=== PATIENT | male | born 1940 | race African-American/Black ===

== ENCOUNTER 2020-06-18 19:33 | Inpatient (IN) | payer MEDICARE ==
[~2020-06-18] VITALS: Ht 182.9 cm; Wt 112.3 kg
--- NOTE | 2020-06-18 19:58 | PHYS DOC ---
General Adult EDM: Chief Complaint: HIP PAIN HPI: HPI: Patient is a 80 year old male who presents with by EMS with right lateral hip pain that is sharp shooting down his leg that he started last couple days. Family states that the patient has blood in his stool and patient states that he does not think that he sees any blood in the stool. Patient also states he has left abdominal pain that feels like " gas pains" and they are sharp at times. Patient states at times he has diarrhea. Patient states it comes and goes. He is alert to himself and place. Patient does have pinpoint pupils bilaterally. I am unaware if this is normal for him or not. Family has not yet arrived. Bradford fabio has not been here and we have no past medical history for the patient at this time. We have no patient medicine list at this time. Patient denies nausea, vomiting, constipation, headache, dizziness, vision changes, chest pain, shortness of air, cough, fever, numbness or tingling. Is able to raise his left leg but he can barely raise the right leg due to it causing the sharp shooting pain that goes into his hip. Family and the patient denies any falls per EMS. Patient rating his pain a 9 out of 10. (LIAM GUZMAN [employer]) Review of Systems: Review of Systems: Constitutional: Denies fever or chills. [] Eyes: Denies change in visual acuity. [] HENT: Denies nasal congestion or sore throat. [] Respiratory: Denies cough or shortness of breath. [] Cardiovascular: Denies chest pain or edema. [] GI: Left-sided abdominal pain, denies nausea, vomiting. + bloody stools or +diarrhea. [] : Denies dysuria. [] Musculoskeletal: Denies back pain. Right hip joint shooting pain radiates down the leg. [] Integument: Denies rash. [] Neurologic: Denies headache, focal weakness or sensory changes. [] Endocrine: Denies polyuria or polydipsia. [] Lymphatic: Denies swollen glands. [] Psychiatric: Denies depression or anxiety. [] (LIAM GUZMAN APRN) Heart Score: Risk Factors: Risk Factors: DM, Current or recent (<one month) smoker, HTN, HLP, family history of CAD, obesity. Risk Scores: Score 0 - 3: 2.5% MACE over next 6 weeks - Discharge Home Score 4 - 6: 20.3% MACE over next 6 weeks - Admit for Clinical Observation Score 7 - 10: 72.7% MACE over next 6 weeks - Early Invasive Strategies (LIAM GUZMAN APRN) Physical Exam: PE: Constitutional: Well developed, well nourished, no acute distress, non-toxic appearance. [] HENT: Normocephalic, atraumatic, bilateral external ears normal, oropharynx moist, no oral exudates, nose normal. [] Eyes: Point pupils. PERRLA, EOMI, conjunctiva normal, no discharge. [] Neck: Normal range of motion, no tenderness, supple, no stridor. [] Cardiovascular:Heart rate regular rhythm, no murmur [] Lungs & Thorax: Bilateral upper breath sounds clear and lower diminished to auscultation [] Abdomen: Bowel sounds normal, soft, no tenderness, no masses, no pulsatile masses. [] Skin: Warm, dry, no erythema, no rash. [] Back: No tenderness, no CVA tenderness. [] Extremities: No tenderness, no cyanosis, no clubbing, ROM intact, lower extremity 2+ edema. [] Neurologic: Alert and oriented X 3, normal motor function, normal sensory function, no focal deficits noted. [] Psychologic: Affect normal, judgement normal, mood normal. [] (LIAM GUZMAN APRN) PE: Patient alert but confused cardiac dyskinesia present no respiratory distress (CAROLINE DENTON MD) EKG: EK and read by Dr Denton as sinus rhythm with a T abnormality but no STEMI[] (LIAM GUZMAN APRN) Radiology/Procedures: Radiology/Procedures: [] Impression: [facility] [address] [place], [place] [id number] IMAGING REPORT Signed PATIENT: LALY DAVIS ACCOUNT: [id number] : 1940 LOCATION: ER AGE: 80 SEX: M EXAM STATUS: REG ER ORD. PHYSICIAN: LIAM GUZMAN APRN REASON: elevated temperature, abd pain PROCEDURE: PORTABLE CHEST 1V Exam: Chest one view INDICATION: Elevated temperature TECHNIQUE: Frontal view of the chest Comparisons: None FINDINGS: The cardiomediastinal silhouette and pulmonary vessels are within normal limits. The lung and pleural spaces are clear. IMPRESSION: No acute cardiopulmonary process. Electronically signed by: Geoffrey Cobb MD (06/18/2020 8:25 PM) [id number] DICTATED and SIGNED BY: GEOFFREY COBB MD DATE: 06/18/202024 [place] [address] IMAGING REPORT Signed PATIENT: LALY DAVIS ACCOUNT: [id number] : 1940 LOCATION: ER AGE: 80 SEX: M EXAM STATUS: REG ER ORD. PHYSICIAN: LIAM GUZMAN APRN REASON: pain PROCEDURE: HIP RIGHT 2V WITH PELVIS EXAM: AP pelvis, AP and lateral views right hip DATE: 06/18/2020 12:00 AM INDICATION: Reason: pain / Spl. Instructions: / History: COMPARISON: No Prior FINDINGS: Severe right hip joint osteoarthritis with joint space effacement, subchondral sclerosis and associated proliferative changes. Left hip joint osteoarthritis with joint space narrowing and proliferative change. No evidence of acute fracture or dislocation. Degenerative changes of the spine and SI joints. IMPRESSION: 1. Severe right hip joint osteoarthritis 2. Moderate left hip joint osteoarthritis. 3. No evidence of acute fracture or dislocation. Electronically signed by: Buddy Smith MD (06/18/2020 8:24 PM) [facility] DICTATED and SIGNED BY: BUDDY SMITH MD DATE: 06/18/[address]23 [address] [id number] IMAGING REPORT Signed PATIENT: LALY DAVIS ACCOUNT: [id number] : 1940 LOCATION: ER AGE: 80 SEX: M EXAM STATUS: REG ER ORD. PHYSICIAN: LIAM GUZMAN APRN REASON: abd pain, possible blood in stool PROCEDURE: CT ABDOMEN PELVIS WO CONTRAST Exam: CT abdomen and pelvis without contrast INDICATION: Abdominal pain, possible blood in stool TECHNIQUE: Sequential axial images through the abdomen and pelvis obtained without IV contrast. Sagittal and coronal reformatted images were reconstructed from the axial data and reviewed. Comparisons: None FINDINGS: Heart size is normal. No pericardial effusion. Strandy opacities at the dependent portion lungs likely representing atelectasis. No pleural effusion. Evaluation of solid organs is limited secondary to noncontrast technique. Liver, spleen, pancreas and adrenals are unremarkable. Gallstones are noted in the gallbladder which is contracted. No perinephric inflammation or hydronephrosis. No renal or ureteral calculi are identified. Bladder is distended and appears thin-walled. Prostate is not enlarged. Large and small bowel are unremarkable. Appendix is normal. No free abdominal air or fluid. No obstruction. Abdominal aorta has a normal course and caliber. No enlarged intra-abdominal lymph nodes are identified. No suspicious osseous lesions or acute fractures. IMPRESSION: No acute process identified within the abdomen or pelvis. Exposure: One or more of the following in the visualized dose reduction techniques were utilized for this examination: 1. Automated exposure control 2. Adjustment of the MA and/or KV according to patient size 3. Use of iterative of reconstructive technique Electronically signed by: Geoffrey Cobb MD (06/18/2020 9:55 PM) [id number] DICTATED and SIGNED BY: GEOFFREY COBB MD DATE: 06/18/202154 (LIAM GUZMAN APRN) Course & Med Decision Making: Course & Med Decision Making Pertinent Labs and Imaging studies reviewed. (See chart for details) Abdomen is soft and nontender. See HPI. Skin pink warm and dry. Patient has bilateral lower extremity 2+ edema. Lungs are clear in upper lobes and diminished in lower lobes. Patient does follow you around in the room with his eyes. He answers my questions promptly and appropriately. I will get more information when the patient family arrives. His temp is 99 8 in the ED. nurse states that the patient's has arrived to the hospital and had a medication list. The nurse stated to the that she was anemic a copy of the medication list. States when she went back in the room the had already left. All that we have down is hydrocodone, iron, MiraLAX, aspirin, amlodipine, Namenda. Patient does have a history of dementia. Fecal occult stool was negative. Your states that she has tried to call the multiple times and she is not answering. It is unknown if patient has any allergy list since the patient left before more questions or a medicine list could be copied. Patient has a low potassium of 2.8. Patient will be given potassium by mouth. It is unknown if patient is allergic to iodine contrast. Therefore the CT is done without contrast. Patient is refusing a urine cath for a specimen. Patient is incontinent. Chest x-ray shows no acute findings. Abdomen pelvis CT shows no acute findings. Patient is admitted to Dr Hill for inability to ambulate and Hypokalemia. (LIAM GUZMAN APRN) Course & Med Decision Making I have personally interviewed and examined patient. All charts, labs and imaging studies were reviewed. I agreed with the PA/METROLOGY TECHNICIAN's findings, exam and plan of care (CAROLINE DENTON MD) Dragon Disclaimer: Dragon Disclaimer: This electronic medical record was generated, in whole or in part, using a voice recognition dictation system. (LIAM GUZMAN APRN) Departure Departure Impression: Primary Impression: Unable to ambulate Additional Impression: Hypokalemia Disposition: ADMITTED INPATIENT Admitting Physician: TRAVIS (LIAM GUZMAN APRN) Condition: STABLE Referrals: DERECK DALEY MD (PCP) Justicifation of Admission Dx: Justifications for Admission: Justification of Admission Dx: Yes Comments: Hypokalemia, unable to ambulate (LIAM GUMZAN APRN) Justification of Admission Dx: Yes (CAROLINE DENTON MD) LIAM GUZMAN APRN Jun 18, 2020 19:57 CAROLINE DENTON MD Jun 18, 2020 22:25
[2020-06-18 20:27] LABS: BASO # 0.1 x10^3/uL (0.0-0.2); BASO % 2 % (0-3); EOS # 0.1 x10^3/uL (0.0-0.7); EOS % 2 % (0-3); HEMATOCRIT 29.5 % (39.0-53.0); HEMOGLOBIN 9.8 g/dL (13.0-17.5); LYMPH # 1.6 x10^3/uL (1.0-4.8); LYMPH % 26 % (24-48); MEAN CORPUSCULAR HEMOGLOBIN 26 pg (25-35); MEAN CORPUSCULAR HGB CONC 33 g/dL (31-37); MEAN CORPUSCULAR VOLUME 78 fL (79-100); MONO # 0.6 x10^3/uL (0.0-1.1); MONO % 9 % (0-9); NEUT # 3.8 x10^3/uL (1.8-7.7); NEUT % 61 % (31-73); PLATELET COUNT 300 x10^3/uL (140-400); RED BLOOD COUNT 3.79 x10^6/uL (4.30-5.70); RED CELL DISTRIBUTION WIDTH 27.5 % (11.5-14.5); WHITE BLOOD COUNT 6.1 x10^3/uL (4.0-11.0)
--- NOTE | 2020-06-18 20:27 | RAD ---
EXAM: AP pelvis, AP and lateral views right hip DATE: 06/18/2020 12:00 AM INDICATION: Reason: pain / Spl. Instructions: / History: COMPARISON: No Prior FINDINGS: Severe right hip joint osteoarthritis with joint space effacement, subchondral sclerosis and associated proliferative changes. Left hip joint osteoarthritis with joint space narrowing and proliferative change. No evidence of acute fracture or dislocation. Degenerative changes of the spine and SI joints. IMPRESSION: 1. Severe right hip joint osteoarthritis 2. Moderate left hip joint osteoarthritis. 3. No evidence of acute fracture or dislocation. Electronically signed by: Buddy Edmondson MD (06/18/2020 8:24 PM) RED
--- NOTE | 2020-06-18 20:28 | RAD ---
Exam: Chest one view INDICATION: Elevated temperature TECHNIQUE: Frontal view of the chest Comparisons: None FINDINGS: The cardiomediastinal silhouette and pulmonary vessels are within normal limits. The lung and pleural spaces are clear. IMPRESSION: No acute cardiopulmonary process. Electronically signed by: Geoffrey Braswell MD (06/18/2020 8:25 PM) [id number]
[2020-06-18 20:33] LABS: FECAL OB PT NEGATIVE (NEG)
[2020-06-18 20:37] LABS: PROTHROMBIN TIME PATIENT 13.5 SEC (11.7-14.0)
[2020-06-18 21:09] LABS: ALBUMIN 2.9 g/dL (3.4-5.0); ALBUMIN/GLOBULIN RATIO 0.8 (1.0-1.7); CALCIUM 8.6 mg/dL (8.5-10.1); CREATININE 1.3 mg/dL (0.7-1.3); GFR 64.3; TOTAL BILIRUBIN 0.4 mg/dL (0.2-1.0); TOTAL PROTEIN 6.7 g/dL (6.4-8.2)
[2020-06-18 21:17] LABS: % BASOS 4 % (0-3); % EOS 1 % (0-5); % LYMPHS 26 % (24-48); % MONOS 11 % (0-10); % SEGS 58 % (35-66); POTASSIUM 2.8 mmol/L (3.5-5.1)
[2020-06-18 21:23] LABS: ANISOCYTOSIS MARKED; PLT ESTIMATE ADEQUATE (ADEQUATE); POIKILOCYTOSIS SLIGHT
[2020-06-18 21:24] LABS: MICROCYTOSIS MOD; OVALOCYTES FEW; SCHISTOCYTES OCC; TARGET CELLS MOD
[2020-06-18 21:25] LABS: TEAR DROP CELLS OCC
[2020-06-18] MEDS ORDERED: CONTRAST GIVEN. MC PRN (21:30)
[2020-06-18] MEDS ORDERED: ONDANSETRON PF 4 MG/2 ML VIAL. IVP ONE (21:30)
[2020-06-18] MEDS ORDERED: POTASSIUM CHLORIDE 20 MEQ TABLET.ER. PO ONE (21:30)
[2020-06-18] MEDS ORDERED: IOHEXOL 300 MG/ML 100ML VIAL. IV ONE (21:45)
--- NOTE | 2020-06-18 21:58 | RAD ---
Exam: CT abdomen and pelvis without contrast INDICATION: Abdominal pain, possible blood in stool TECHNIQUE: Sequential axial images through the abdomen and pelvis obtained without IV contrast. Sagittal and coronal reformatted images were reconstructed from the axial data and reviewed. Comparisons: None FINDINGS: Heart size is normal. No pericardial effusion. Strandy opacities at the dependent portion lungs likely representing atelectasis. No pleural effusion. Evaluation of solid organs is limited secondary to noncontrast technique. Liver, spleen, pancreas and adrenals are unremarkable. Gallstones are noted in the gallbladder which is contracted. No perinephric inflammation or hydronephrosis. No renal or ureteral calculi are identified. Bladder is distended and appears thin-walled. Prostate is not enlarged. Large and small bowel are unremarkable. Appendix is normal. No free abdominal air or fluid. No obstruction. Abdominal aorta has a normal course and caliber. No enlarged intra-abdominal lymph nodes are identified. No suspicious osseous lesions or acute fractures. IMPRESSION: No acute process identified within the abdomen or pelvis. Exposure: One or more of the following in the visualized dose reduction techniques were utilized for this examination: 1. Automated exposure control 2. Adjustment of the MA and/or KV according to patient size 3. Use of iterative of reconstructive technique Electronically signed by: Geoffrey Braswell MD (06/18/2020 9:55 PM) [id number]
--- NOTE | 2020-06-18 22:00 | RAD ---
Exam: CT head INDICATION: Left eye vision problems TECHNIQUE: Sequential axial images through the head were obtained without the administration of IV contrast. Comparisons: None FINDINGS: No focal parenchymal lesion or hemorrhage is identified. There is no midline shift or sulcal effacement. Generalized atrophy noted. There is mild hypodensity in the periventricular white matter. Velasquez-white distinction is preserved. The ventricular system is within normal limits without compression hydrocephalus. The basal cisterns are well maintained. The visualized portions of the paranasal sinuses and mastoid air cells are well-pneumatized. No acute fractures. IMPRESSION: Small vessel ischemic change, technically age indeterminate without prior imaging. Exposure: One or more of the following in the visualized dose reduction techniques were utilized for this examination: 1. Automated exposure control 2. Adjustment of the MA and/or KV according to patient size Use of iterative of reconstructive technique Electronically signed by: Geoffrey Braswell MD (06/18/2020 9:57 PM) [id number]
[2020-06-18] MEDS ORDERED: ONDANSETRON PF 4 MG/2 ML VIAL. IV PRN (22:30)
--- NOTE | 2020-06-18 23:45 | NUR ---
Admit from ED to [facility] room 262 via [facility]. Patient transferred self from [facility] to bed with difficulty r/t right hip pain. Patient is alert and can tell me his name and date but can not tell me his medical history, home medication or what pharmacy he uses. When asked who his contact lens assistant is he replies his sister but he can't tell me his sister's name. He reports he left his cell phone at home. Orientated to room and call light. Reviewed POC to include tele monitoring and not to get out of bed without assist. Resting in bed with call light at hand. Bed alarm on.
[2020-06-18 23:50] VITALS: BP 139/63
[2020-06-19 03:35] VITALS: BP 124/55
--- NOTE | 2020-06-19 04:36 | EKG ---
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
[2020-06-19 05:00] LABS: BILIRUBIN,URINE NEGATIVE (NEG); CLARITY,URINE CLEAR; COLOR,URINE YELLOW; NITRITE,URINE NEGATIVE (NEG); PH,URINE 5.5 (<5.0-8.0); PROTEIN,URINE NEGATIVE (NEG-TRACE); UROBILINOGEN,URINE 0.2 mg/dL (0.2 mg/dL)
[2020-06-19 05:07] LABS: BARBITURATES NEG (NEG); BENZODIAZEPINES NEG (NEG); CANNABINOIDS NEG (NEG); COCAINE NEG (NEG); METHADONE NEG (NEG); OPIATES POS (NEG); PHENCYCLIDINE NEG (NEG)
[2020-06-19 05:09] LABS: SQUAMOUS EPITHELIAL CELL,UR FEW /LPF
[2020-06-19 05:10] LABS: BACTERIA,URINE 0 /HPF (0-FEW); RBC,URINE 0 /HPF (0-2); WBC,URINE OCC /HPF (0-4)
[2020-06-19 05:12] LABS: AMPHETAMINE/METHAMPHETAMINE NEG (NEG)
[2020-06-19 07:00] VITALS: BP 112/55
[2020-06-19] MEDS ORDERED: LISI-334 PO (08:25)
[2020-06-19] MEDS ORDERED: DOXA4TAB3 PO (08:25)
[2020-06-19] MEDS ORDERED: FERR325T14 PO (08:25)
[2020-06-19] MEDS ORDERED: LOVA20TA2 PO (08:25)
[2020-06-19] MEDS ORDERED: LATA2.5D3 EACHEYE (08:25)
[2020-06-19] MEDS ORDERED: AMLO10TA8 PO (08:25)
[2020-06-19] MEDS ORDERED: HYDR-3164 PO (08:25)
[2020-06-19] MEDS ORDERED: BRIM5DRO4 EACHEYE (08:25)
[2020-06-19] MEDS ORDERED: MAGNESIUM SULFATE 2GM 50 ML IV ONE (08:30)
[2020-06-19] MEDS ORDERED: POTASSIUM CHLORIDE 20 MEQ TABLET.ER. PO ONE (08:30)
[2020-06-19 09:27] LABS: CALCIUM 8.9 mg/dL (8.5-10.1); CREATININE 1.1 mg/dL (0.7-1.3); GFR 77.9
[2020-06-19 09:31] LABS: HEMOGLOBIN 10.3 g/dL (13.0-17.5); RED BLOOD COUNT 4.06 x10^6/uL (4.30-5.70); RED CELL DISTRIBUTION WIDTH 27.6 % (11.5-14.5); WHITE BLOOD COUNT 5.5 x10^3/uL (4.0-11.0)
--- NOTE | 2020-06-19 10:35 | NUR ---
SW following. Discussed with RN, pt from home with ex-, room air, cardiac diet, pt a&o x2-3, PT/OT ordered. SW will continue to follow.
[2020-06-19 11:07] VITALS: BP 136/67
--- NOTE | 2020-06-19 11:44 | PDOC2 ---
CONSULT Date of Consult Date of Consult DATE: 06/19/20 TIME: 11:43 Identification/Chief Complaint Chief Complaint Right hip pain, right hip arthritis Source Source: Chart review, Patient History of Present Illness Reason for Visit: Mr. Davis, is an 80 year old male admit by EMS with right lateral hip pain that is sharp shooting down his leg that he started last couple days. No recent falls. He says he had a cortisone injection in the past for left hip arthritis and it did not work very well. We talked about the risks and benefits of proceeding with a right hip cortisone injection. He said he is willing to do t hat as long as it will not hurt. I explained that there could be some pain with injection but it might also help his pain and walking. Current Problem List Problem List Problems Medical Problems: (1) Hypokalemia Status: Acute (2) Unable to ambulate Status: Acute Current Medications Current Medications Current Medications Potassium Chloride (Klor-Con) 40 meq 1X ONCE PO Last administered on 06/18/20at 21:51; Start 06/18/20 at 21:30; Stop 06/18/20 at 21:31; Status DC Iohexol (Omnipaque 300 Mg/ml) 75 ml 1X ONCE IV ; Start 06/18/20 at 21:45; Stop 06/18/20 at 21:46; Status DC Ondansetron HCl (Zofran) 4 mg 1X ONCE IVP Last administered on 06/18/20at 21:51; Start 06/18/20 at 21:30; Stop 06/18/20 at 21:31; Status DC Info (CONTRAST GIVEN -- Rx MONITORING) 1 each PRN DAILY PRN MC SEE COMMENTS; Start 06/18/20 at 21:30; Stop 06/20/20 at 21:29 Ondansetron HCl (Zofran) 4 mg PRN Q8HRS PRN IV NAUSEA/VOMITING; Start 06/18/20 at 22:30; Stop 06/19/20 at 22:29 Potassium Chloride (Klor-Con) 40 meq 1X ONCE PO Last administered on 06/19/20at 08:50; Start 06/19/20 at 08:30; Stop 06/19/20 at 08:31; Status DC Magnesium Sulfate 50 ml @ 25 mls/hr 1X ONCE IV Last administered on 06/19/20at 08:52; Start 06/19/20 at 08:30; Stop 06/19/20 at 10:29; Status DC Active Scripts Active Reported Latanoprost 2.5 Ml Drops 1 Drop EACHEYE QHS Brimonidine Tartrate 5 Ml Drops 1 Drop EACHEYE BID Eagle 5-325 Tablet (Acetaminophen/Hydrocodone Bitart) 1 Each Tablet 1 Tab PO Q4- 6HRS Lovastatin 20 Mg Tablet 20 Mg PO HS Ferrous Sulfate 325 Mg Tablet 325 Mg PO QODAY Doxazosin Mesylate 4 Mg Tablet 1 Tab PO DAILY Lisinopril 20 Mg Tablet 20 Mg PO DAILY Amlodipine Besylate 10 Mg Tablet 10 Mg PO DAILY Allergies Allergies: Coded Allergies: No Known Drug Allergies (Unverified , 06/19/20) ROS Review of System Patient denies nausea, vomiting, constipation, headache, dizziness, vision changes, chest pain, shortness of air, cough, fever, numbness or tingling. Physical Exam General: Alert, Cooperative HEENT: Atraumatic Lungs: Normal air movement Heart: Regular rate Abdomen: Soft Extremities: Other (The skin over the right hip is intact. The gross alignment is normal. There is decreased internal and external rotation of the hip, and pain with range of motion. Light touch sensation seems intact distally. Capillary refill is normal. He cannot lift the right leg from the bed, due to the groin and hip pain. I believe this is hip osteoarthritis.) Skin: No significant lesion Neuro: Normal speech (Normal speech within some limits. He speaks quietly, uses very few words, and is difficult to understand.), Sensation intact Psych/Mental Status: Mood NL Vitals VITALS Vital Signs Date Time Temp Pulse Resp B/P (MAP) Pulse Ox O2 Delivery O2 Flow Rate FiO2 06/19/20 11:07 98.6 96 20 136/67 (90) 96 Room Air 98.6 Labs Labs Laboratory Tests Test 06/18/20 19:45 06/18/20 20:17 06/19/20 04:30 06/19/20 09:10 Stool Occult Blood Negative (NEG) White Blood Count 6.1 x10^3/uL (4.0-11.0) 5.5 x10^3/uL (4.0-11.0) Red Blood Count 3.79 x10^6/uL (4.30-5.70) 4.06 x10^6/uL (4.30-5.70) Hemoglobin 9.8 g/dL (13.0-17.5) 10.3 g/dL (13.0-17.5) Hematocrit 29.5 % (39.0-53.0) 32.0 % (39.0-53.0) Mean Corpuscular Volume 78 fL (79-100) 79 fL (79-100) Mean Corpuscular Hemoglobin 26 pg (25-35) 25 pg (25-35) Mean Corpuscular Hemoglobin Concent 33 g/dL (31-37) 32 g/dL (31-37) Red Cell Distribution Width 27.5 % (11.5-14.5) 27.6 % (11.5-14.5) Platelet Count 300 x10^3/uL (140-400) 278 x10^3/uL (140-400) Neutrophils (%) (Auto) 61 % (31-73) Lymphocytes (%) (Auto) 26 % (24-48) Monocytes (%) (Auto) 9 % (0-9) Eosinophils (%) (Auto) 2 % (0-3) Basophils (%) (Auto) 2 % (0-3) Neutrophils # (Auto) 3.8 x10^3/uL (1.8-7.7) Lymphocytes # (Auto) 1.6 x10^3/uL (1.0-4.8) Monocytes # (Auto) 0.6 x10^3/uL (0.0-1.1) Eosinophils # (Auto) 0.1 x10^3/uL (0.0-0.7) Basophils # (Auto) 0.1 x10^3/uL (0.0-0.2) Segmented Neutrophils % 58 % (35-66) Lymphocytes % 26 % (24-48) Monocytes % 11 % (0-10) Eosinophils % 1 % (0-5) Basophils % 4 % (0-3) Platelet Estimate Adequate (ADEQUATE) Poikilocytosis Slight Anisocytosis Marked Microcytosis Mod Target Cells Mod Tear Drop Cells Occ Ovalocytes Few Schistocytes Occ Prothrombin Time 13.5 SEC (11.7-14.0) Prothromb Time International Ratio 1.1 (0.8-1.1) Sodium Level 140 mmol/L (136-145) 145 mmol/L (136-145) Potassium Level 2.8 mmol/L (3.5-5.1) 3.0 mmol/L (3.5-5.1) Chloride Level 105 mmol/L (98-107) 108 mmol/L (98-107) Carbon Dioxide Level 25 mmol/L (21-32) 27 mmol/L (21-32) Anion Gap 10 (6-14) 10 (6-14) Blood Urea Nitrogen 6 mg/dL (8-26) 5 mg/dL (8-26) Creatinine 1.3 mg/dL (0.7-1.3) 1.1 mg/dL (0.7-1.3) Estimated GFR (Cockcroft-Gault) 64.3 77.9 BUN/Creatinine Ratio 5 (6-20) Glucose Level 112 mg/dL (70-99) 102 mg/dL (70-99) Calcium Level 8.6 mg/dL (8.5-10.1) 8.9 mg/dL (8.5-10.1) Magnesium Level 1.8 mg/dL (1.8-2.4) Total Bilirubin 0.4 mg/dL (0.2-1.0) Aspartate Amino Transf (AST/SGOT) 14 U/L (15-37) Alanine Aminotransferase (ALT/SGPT) 16 U/L (16-63) Alkaline Phosphatase 73 U/L (46-116) Troponin I Quantitative < 0.017 ng/mL (0.000-0.055) MI-Zwr-[id number]-Type Natriuretic Peptide 68 pg/mL (0-449) Total Protein 6.7 g/dL (6.4-8.2) Albumin 2.9 g/dL (3.4-5.0) Albumin/Globulin Ratio 0.8 (1.0-1.7) Lipase 54 U/L (73-393) Urine Collection Type Unknown Urine Color Yellow Urine Clarity Clear Urine pH 5.5 (<5.0-8.0) Urine Specific [place] <=1.005 (1.000-1.030) Urine Protein Negative mg/dL (NEG-TRACE) Urine Glucose (UA) Negative mg/dL (NEG) Urine Ketones (Stick) Negative mg/dL (NEG) Urine Blood Negative (NEG) Urine Nitrite Negative (NEG) Urine Bilirubin Negative (NEG) Urine Urobilinogen Dipstick 0.2 mg/dL (0.2 mg/dL) Urine Leukocyte Esterase Negative (NEG) Urine RBC 0 /HPF (0-2) Urine WBC Occ /HPF (0-4) Urine Squamous Epithelial Cells Few /LPF Urine Bacteria 0 /HPF (0-FEW) Urine Mucus Slight /LPF Urine Opiates Screen Pos (NEG) Urine Methadone Screen Neg (NEG) Urine Barbiturates Neg (NEG) Urine Phencyclidine Screen Neg (NEG) Urine Amphetamine/Methamphetamine Neg (NEG) Urine Benzodiazepines Screen Neg (NEG) Urine Cocaine Screen Neg (NEG) Urine Cannabinoids Screen Neg (NEG) Urine Ethyl Alcohol Neg (NEG) Laboratory Tests Test 06/18/20 19:45 06/18/20 20:17 06/19/20 04:30 06/19/20 09:10 Stool Occult Blood Negative (NEG) White Blood Count 6.1 x10^3/uL (4.0-11.0) 5.5 x10^3/uL (4.0-11.0) Red Blood Count 3.79 x10^6/uL (4.30-5.70) 4.06 x10^6/uL (4.30-5.70) Hemoglobin 9.8 g/dL (13.0-17.5) 10.3 g/dL (13.0-17.5) Hematocrit 29.5 % (39.0-53.0) 32.0 % (39.0-53.0) Mean Corpuscular Volume 78 fL (79-100) 79 fL (79-100) Mean Corpuscular Hemoglobin 26 pg (25-35) 25 pg (25-35) Mean Corpuscular Hemoglobin Concent 33 g/dL (31-37) 32 g/dL (31-37) Red Cell Distribution Width 27.5 % (11.5-14.5) 27.6 % (11.5-14.5) Platelet Count 300 x10^3/uL (140-400) 278 x10^3/uL (140-400) Neutrophils (%) (Auto) 61 % (31-73) Lymphocytes (%) (Auto) 26 % (24-48) Monocytes (%) (Auto) 9 % (0-9) Eosinophils (%) (Auto) 2 % (0-3) Basophils (%) (Auto) 2 % (0-3) Neutrophils # (Auto) 3.8 x10^3/uL (1.8-7.7) Lymphocytes # (Auto) 1.6 x10^3/uL (1.0-4.8) Monocytes # (Auto) 0.6 x10^3/uL (0.0-1.1) Eosinophils # (Auto) 0.1 x10^3/uL (0.0-0.7) Basophils # (Auto) 0.1 x10^3/uL (0.0-0.2) Segmented Neutrophils % 58 % (35-66) Lymphocytes % 26 % (24-48) Monocytes % 11 % (0-10) Eosinophils % 1 % (0-5) Basophils % 4 % (0-3) Platelet Estimate Adequate (ADEQUATE) Poikilocytosis Slight Anisocytosis Marked Microcytosis Mod Target Cells Mod Tear Drop Cells Occ Ovalocytes Few Schistocytes Occ Prothrombin Time 13.5 SEC (11.7-14.0) Prothromb Time International Ratio 1.1 (0.8-1.1) Sodium Level 140 mmol/L (136-145) 145 mmol/L (136-145) Potassium Level 2.8 mmol/L (3.5-5.1) 3.0 mmol/L (3.5-5.1) Chloride Level 105 mmol/L (98-107) 108 mmol/L (98-107) Carbon Dioxide Level 25 mmol/L (21-32) 27 mmol/L (21-32) Anion Gap 10 (6-14) 10 (6-14) Blood Urea Nitrogen 6 mg/dL (8-26) 5 mg/dL (8-26) Creatinine 1.3 mg/dL (0.7-1.3) 1.1 mg/dL (0.7-1.3) Estimated GFR (Cockcroft-Gault) 64.3 77.9 BUN/Creatinine Ratio 5 (6-20) Glucose Level 112 mg/dL (70-99) 102 mg/dL (70-99) Calcium Level 8.6 mg/dL (8.5-10.1) 8.9 mg/dL (8.5-10.1) Magnesium Level 1.8 mg/dL (1.8-2.4) Total Bilirubin 0.4 mg/dL (0.2-1.0) Aspartate Amino Transf (AST/SGOT) 14 U/L (15-37) Alanine Aminotransferase (ALT/SGPT) 16 U/L (16-63) Alkaline Phosphatase 73 U/L (46-116) Troponin I Quantitative < 0.017 ng/mL (0.000-0.055) OY-Hoa-D-Type Natriuretic Peptide 68 pg/mL (0-449) Total Protein 6.7 g/dL (6.4-8.2) Albumin 2.9 g/dL (3.4-5.0) Albumin/Globulin Ratio 0.8 (1.0-1.7) Lipase 54 U/L (73-393) Urine Collection Type Unknown Urine Color Yellow Urine Clarity Clear Urine pH 5.5 (<5.0-8.0) Urine Specific [place] <=1.005 (1.000-1.030) Urine Protein Negative mg/dL (NEG-TRACE) Urine Glucose (UA) Negative mg/dL (NEG) Urine Ketones (Stick) Negative mg/dL (NEG) Urine Blood Negative (NEG) Urine Nitrite Negative (NEG) Urine Bilirubin Negative (NEG) Urine Urobilinogen Dipstick 0.2 mg/dL (0.2 mg/dL) Urine Leukocyte Esterase Negative (NEG) Urine RBC 0 /HPF (0-2) Urine WBC Occ /HPF (0-4) Urine Squamous Epithelial Cells Few /LPF Urine Bacteria 0 /HPF (0-FEW) Urine Mucus Slight /LPF Urine Opiates Screen Pos (NEG) Urine Methadone Screen Neg (NEG) Urine Barbiturates Neg (NEG) Urine Phencyclidine Screen Neg (NEG) Urine Amphetamine/Methamphetamine Neg (NEG) Urine Benzodiazepines Screen Neg (NEG) Urine Cocaine Screen Neg (NEG) Urine Cannabinoids Screen Neg (NEG) Urine Ethyl Alcohol Neg (NEG) Images Images [facility] [address] [place] [address] IMAGING REPORT Signed PATIENT: LALY DAVIS ACCOUNT: [id number] : 1940 LOCATION: ER AGE: 80 SEX: M EXAM STATUS: REG ER ORD. PHYSICIAN: LIAM GUZMAN APRN REASON: pain PROCEDURE: HIP RIGHT 2V WITH PELVIS EXAM: AP pelvis, AP and lateral views right hip DATE: 06/18/2020 12:00 AM INDICATION: Reason: pain / Spl. Instructions: / History: COMPARISON: No Prior FINDINGS: Severe right hip joint osteoarthritis with joint space effacement, subchondral sclerosis and associated proliferative changes. Left hip joint osteoarthritis with joint space narrowing and proliferative change. No evidence of acute fracture or dislocation. Degenerative changes of the spine and SI joints. IMPRESSION: 1. Severe right hip joint osteoarthritis 2. Moderate left hip joint osteoarthritis. 3. No evidence of acute fracture or dislocation. Electronically signed by: Buddy Smith MD (06/18/2020 8:24 PM) [facility] DICTATED and SIGNED BY: BUDDY SMITH MD DATE: 06/18/202023 [facility] [address] [place] [address] IMAGING REPORT Signed PATIENT: LALY DAVIS ACCOUNT: [id number] : 1940 LOCATION: ER AGE: 80 SEX: M EXAM STATUS: REG ER ORD. PHYSICIAN: LIAM GUZMAN APRN REASON: abd pain, possible blood in stool PROCEDURE: CT ABDOMEN PELVIS WO CONTRAST Exam: CT abdomen and pelvis without contrast INDICATION: Abdominal pain, possible blood in stool TECHNIQUE: Sequential axial images through the abdomen and pelvis obtained without IV contrast. Sagittal and coronal reformatted images were reconstructed from the axial data and reviewed. Comparisons: None FINDINGS: Heart size is normal. No pericardial effusion. Strandy opacities at the dependent portion lungs likely representing atelectasis. No pleural effusion. Evaluation of solid organs is limited secondary to noncontrast technique. Liver, spleen, pancreas and adrenals are unremarkable. Gallstones are noted in the gallbladder which is contracted. No perinephric inflammation or hydronephrosis. No renal or ureteral calculi are identified. Bladder is distended and appears thin-walled. Prostate is not enlarged. Large and small bowel are unremarkable. Appendix is normal. No free abdominal air or fluid. No obstruction. Abdominal aorta has a normal course and caliber. No enlarged intra-abdominal lymph nodes are identified. No suspicious osseous lesions or acute fractures. IMPRESSION: No acute process identified within the abdomen or pelvis. Exposure: One or more of the following in the visualized dose reduction techniques were utilized for this examination: 1. Automated exposure control 2. Adjustment of the MA and/or KV according to patient size 3. Use of iterative of reconstructive technique Electronically signed by: Geoffrey Cobb MD (06/18/2020 9:55 PM) [id number] DICTATED and SIGNED BY: GEOFFREY COBB MD DATE: 06/18/202154 Assessment/Plan Assessment/Plan right hip osteoarthritis He is a poor historian, and does not appear very compliant with medical care or understanding the care. He has some dementia by report. He is not a good candidate for hip replacement surgery for multiple reasons. I offered him a cortisone injection into the right hip joint which might offer some relief. He came to the hospital with right hip pain so I think it is reasonable to attempt an injection. I will order hip cortisone injection under interventional radiography. He may weight-bear as tolerated with a walker. DIANA RIDDLE MD Jun 19, 2020 11:44
--- NOTE | 2020-06-19 12:18 | PDOC1 ---
History and Physical Date of Admission Date of Admission DATE: 06/19/20 TIME: 08:30 Identification/Chief Complaint Chief Complaint leg pain, cant walk Source Source: Caregiver, Chart review History of Present Illness History of Present Illness Mr. Rose, is a 80 year old male admit by EMS with right lateral hip pain that is sharp shooting down his leg that he started last couple days. leg pain 06/17, no falls Family states that the patient has blood in his stool and patient states that he does not think that he sees any blood in the stool. Patient also states he has left abdominal pain that feels like " gas pains" and they are sharp at times. Patient states at times he has diarrhea. Patient states it comes and goes. He is alert to himself and place. Patient does have pinpoint pupils bilaterally. I am unaware if this is normal for him or not. Family has not yet arrived. Patient has not been here and we have no past medical history for the patient at this time. We have no patient medicine list at this time. Family History Family History: No Significant Social History Smoke: No ALCOHOL: none Drugs: None Current Problem List Problem List Problems Medical Problems: (1) Hypokalemia Status: Acute (2) Unable to ambulate Status: Acute Current Medications Current Medications Current Medications Potassium Chloride (Klor-Con) 40 meq 1X ONCE PO Last administered on 06/18/20at 21:51; Start 06/18/20 at 21:30; Stop 06/18/20 at 21:31; Status DC Iohexol (Omnipaque 300 Mg/ml) 75 ml 1X ONCE IV ; Start 06/18/20 at 21:45; Stop 06/18/20 at 21:46; Status DC Ondansetron HCl (Zofran) 4 mg 1X ONCE IVP Last administered on 06/18/20at 21:51; Start 06/18/20 at 21:30; Stop 06/18/20 at 21:31; Status DC Info (CONTRAST GIVEN -- Rx MONITORING) 1 each PRN DAILY PRN MC SEE COMMENTS; Start 06/18/20 at 21:30; Stop 06/20/20 at 21:29 Ondansetron HCl (Zofran) 4 mg PRN Q8HRS PRN IV NAUSEA/VOMITING; Start 06/18/20 at 22:30; Stop 06/19/20 at 22:29 Potassium Chloride (Klor-Con) 40 meq 1X ONCE PO Last administered on 06/19/20at 08:50; Start 06/19/20 at 08:30; Stop 06/19/20 at 08:31; Status DC Magnesium Sulfate 50 ml @ 25 mls/hr 1X ONCE IV Last administered on 06/19/20at 08:52; Start 06/19/20 at 08:30; Stop 06/19/20 at 10:29; Status DC Active Scripts Active Reported Latanoprost 2.5 Ml Drops 1 Drop EACHEYE QHS Brimonidine Tartrate 5 Ml Drops 1 Drop EACHEYE BID [place] 5-325 Tablet (Acetaminophen/Hydrocodone Bitart) 1 Each Tablet 1 Tab PO Q4-6HRS Lovastatin 20 Mg Tablet 20 Mg PO HS Ferrous Sulfate 325 Mg Tablet 325 Mg PO QODAY Doxazosin Mesylate 4 Mg Tablet 1 Tab PO DAILY Lisinopril 20 Mg Tablet 20 Mg PO DAILY Amlodipine Besylate 10 Mg Tablet 10 Mg PO DAILY Allergies Allergies: Coded Allergies: No Known Drug Allergies (Unverified , 06/19/20) ROS Review of System Patient denies nausea, vomiting, constipation, headache, dizziness, vision changes, chest pain, shortness of air, cough, fever, numbness or tingling. General: No: Chills, Night Sweats, Fatigue, Malaise, Appetite, Other PSYCHOLOGICAL ROS: No: Anxiety, Behavioral Disorder, Concentration difficultie, Decreased libido, Depression, Disorientation, Hallucinations, Hostility, Irritablity, Memory difficulties, Mood Swings, Obsessive thoughts, Physical abuse, Sexual abuse, Sleep disturbances, Suicidal ideation, Other Eyes: No Blurry vision, No Decreased vision, No Double vision, No Dry eyes, No Excessive tearing, No Eye Pain, No Itchy Eyes, No Loss of vision, No Photophobia, No Scotomata, No Uses contacts, No Uses glasses, No Other HEENT: No: Heacaches, Visual Changes, Hearing change, Nasal congestion, Nasal discharge, Oral lesions, Sinus pain, Sore Throat, Epistaxis, Sneezing, Snoring, Tinnitus, Vertigo, Vocal changes, Other Respiratory: No: Cough, Hemoptysis, Orthopnea, Pleuritic Pain, Shortness of breath, SOB with excertion, Sputum Changes, Stridor, Tachypnea, Wheezing, Other Cardiovascular: No Chest Pain, No Palpitations, No Orthopnea, No Paroxysmal Noc. Dyspnea, No Edema, No Lt Headedness, No Other Gastrointestinal: Yes Nausea; No Vomiting, No Abdominal Pain, No Diarrhea, No Constipation, No Melena, No Hematochezia, No Other Genitourinary: No Dysuria, No Frequency, No Incontinence, No Hematuria, No Retention, No Discharge, No Urgency, No Pain, No Flank Pain, No Other, No , No , No , No , No , No , No Musculoskeletal: Yes Gait Disturbance, Yes Joint Pain, Yes Joint Stiffness Physical Exam Physical Exam Is able to raise his left leg but he can barely raise the right leg due to it causing the sharp shooting pain that goes into his hip. General: Alert, Oriented X3, mild distress HEENT: PERRLA Lungs: Clear to auscultation Abdomen: Normal bowel sounds Extremities: No edema Skin: No breakdown Neuro: Cranial nerves 3-12 NL Psych/Mental Status: Mood NL Vitals Vitals Vital Signs Date Time Temp Pulse Resp B/P (MAP) Pulse Ox O2 Delivery O2 Flow Rate FiO2 06/19/20 11:07 98.6 96 20 136/67 (90) 96 Room Air 98.6 Labs Labs Laboratory Tests Test 06/18/20 19:45 06/18/20 20:17 06/19/20 04:30 06/19/20 09:10 Stool Occult Blood Negative (NEG) White Blood Count 6.1 x10^3/uL (4.0-11.0) 5.5 x10^3/uL (4.0-11.0) Red Blood Count 3.79 x10^6/uL (4.30-5.70) 4.06 x10^6/uL (4.30-5.70) Hemoglobin 9.8 g/dL (13.0-17.5) 10.3 g/dL (13.0-17.5) Hematocrit 29.5 % (39.0-53.0) 32.0 % (39.0-53.0) Mean Corpuscular Volume 78 fL (79-100) 79 fL (79-100) Mean Corpuscular Hemoglobin 26 pg (25-35) 25 pg (25-35) Mean Corpuscular Hemoglobin Concent 33 g/dL (31-37) 32 g/dL (31-37) Red Cell Distribution Width 27.5 % (11.5-14.5) 27.6 % (11.5-14.5) Platelet Count 300 x10^3/uL (140-400) 278 x10^3/uL (140-400) Neutrophils (%) (Auto) 61 % (31-73) Lymphocytes (%) (Auto) 26 % (24-48) Monocytes (%) (Auto) 9 % (0-9) Eosinophils (%) (Auto) 2 % (0-3) Basophils (%) (Auto) 2 % (0-3) Neutrophils # (Auto) 3.8 x10^3/uL (1.8-7.7) Lymphocytes # (Auto) 1.6 x10^3/uL (1.0-4.8) Monocytes # (Auto) 0.6 x10^3/uL (0.0-1.1) Eosinophils # (Auto) 0.1 x10^3/uL (0.0-0.7) Basophils # (Auto) 0.1 x10^3/uL (0.0-0.2) Segmented Neutrophils % 58 % (35-66) Lymphocytes % 26 % (24-48) Monocytes % 11 % (0-10) Eosinophils % 1 % (0-5) Basophils % 4 % (0-3) Platelet Estimate Adequate (ADEQUATE) Poikilocytosis Slight Anisocytosis Marked Microcytosis Mod Target Cells Mod Tear Drop Cells Occ Ovalocytes Few Schistocytes Occ Prothrombin Time 13.5 SEC (11.7-14.0) Prothromb Time International Ratio 1.1 (0.8-1.1) Sodium Level 140 mmol/L (136-145) 145 mmol/L (136-145) Potassium Level 2.8 mmol/L (3.5-5.1) 3.0 mmol/L (3.5-5.1) Chloride Level 105 mmol/L (98-107) 108 mmol/L (98-107) Carbon Dioxide Level 25 mmol/L (21-32) 27 mmol/L (21-32) Anion Gap 10 (6-14) 10 (6-14) Blood Urea Nitrogen 6 mg/dL (8-26) 5 mg/dL (8-26) Creatinine 1.3 mg/dL (0.7-1.3) 1.1 mg/dL (0.7-1.3) Estimated GFR (Cockcroft-Gault) 64.3 77.9 BUN/Creatinine Ratio 5 (6-20) Glucose Level 112 mg/dL (70-99) 102 mg/dL (70-99) Calcium Level 8.6 mg/dL (8.5-10.1) 8.9 mg/dL (8.5-10.1) Magnesium Level 1.8 mg/dL (1.8-2.4) Total Bilirubin 0.4 mg/dL (0.2-1.0) Aspartate Amino Transf (AST/SGOT) 14 U/L (15-37) Alanine Aminotransferase (ALT/SGPT) 16 U/L (16-63) Alkaline Phosphatase 73 U/L (46-116) Troponin I Quantitative < 0.017 ng/mL (0.000-0.055) BV-[id number]-Type Natriuretic Peptide 68 pg/mL (0-449) Total Protein 6.7 g/dL (6.4-8.2) Albumin 2.9 g/dL (3.4-5.0) Albumin/Globulin Ratio 0.8 (1.0-1.7) Lipase 54 U/L (73-393) Urine Collection Type Unknown Urine Color Yellow Urine Clarity Clear Urine pH 5.5 (<5.0-8.0) Urine Specific [place] <=1.005 (1.000-1.030) Urine Protein Negative mg/dL (NEG-TRACE) Urine Glucose (UA) Negative mg/dL (NEG) Urine Ketones (Stick) Negative mg/dL (NEG) Urine Blood Negative (NEG) Urine Nitrite Negative (NEG) Urine Bilirubin Negative (NEG) Urine Urobilinogen Dipstick 0.2 mg/dL (0.2 mg/dL) Urine Leukocyte Esterase Negative (NEG) Urine RBC 0 /HPF (0-2) Urine WBC Occ /HPF (0-4) Urine Squamous Epithelial Cells Few /LPF Urine Bacteria 0 /HPF (0-FEW) Urine Mucus Slight /LPF Urine Opiates Screen Pos (NEG) Urine Methadone Screen Neg (NEG) Urine Barbiturates Neg (NEG) Urine Phencyclidine Screen Neg (NEG) Urine Amphetamine/Methamphetamine Neg (NEG) Urine Benzodiazepines Screen Neg (NEG) Urine Cocaine Screen Neg (NEG) Urine Cannabinoids Screen Neg (NEG) Urine Ethyl Alcohol Neg (NEG) Laboratory Tests Test 06/18/20 19:45 06/18/20 20:17 06/19/20 04:30 06/19/20 09:10 Stool Occult Blood Negative (NEG) White Blood Count 6.1 x10^3/uL (4.0-11.0) 5.5 x10^3/uL (4.0-11.0) Red Blood Count 3.79 x10^6/uL (4.30-5.70) 4.06 x10^6/uL (4.30-5.70) Hemoglobin 9.8 g/dL (13.0-17.5) 10.3 g/dL (13.0-17.5) Hematocrit 29.5 % (39.0-53.0) 32.0 % (39.0-53.0) Mean Corpuscular Volume 78 fL (79-100) 79 fL (79-100) Mean Corpuscular Hemoglobin 26 pg (25-35) 25 pg (25-35) Mean Corpuscular Hemoglobin Concent 33 g/dL (31-37) 32 g/dL (31-37) Red Cell Distribution Width 27.5 % (11.5-14.5) 27.6 % (11.5-14.5) Platelet Count 300 x10^3/uL (140-400) 278 x10^3/uL (140-400) Neutrophils (%) (Auto) 61 % (31-73) Lymphocytes (%) (Auto) 26 % (24-48) Monocytes (%) (Auto) 9 % (0-9) Eosinophils (%) (Auto) 2 % (0-3) Basophils (%) (Auto) 2 % (0-3) Neutrophils # (Auto) 3.8 x10^3/uL (1.8-7.7) Lymphocytes # (Auto) 1.6 x10^3/uL (1.0-4.8) Monocytes # (Auto) 0.6 x10^3/uL (0.0-1.1) Eosinophils # (Auto) 0.1 x10^3/uL (0.0-0.7) Basophils # (Auto) 0.1 x10^3/uL (0.0-0.2) Segmented Neutrophils % 58 % (35-66) Lymphocytes % 26 % (24-48) Monocytes % 11 % (0-10) Eosinophils % 1 % (0-5) Basophils % 4 % (0-3) Platelet Estimate Adequate (ADEQUATE) Poikilocytosis Slight Anisocytosis Marked Microcytosis Mod Target Cells Mod Tear Drop Cells Occ Ovalocytes Few Schistocytes Occ Prothrombin Time 13.5 SEC (11.7-14.0) Prothromb Time International Ratio 1.1 (0.8-1.1) Sodium Level 140 mmol/L (136-145) 145 mmol/L (136-145) Potassium Level 2.8 mmol/L (3.5-5.1) 3.0 mmol/L (3.5-5.1) Chloride Level 105 mmol/L (98-107) 108 mmol/L (98-107) Carbon Dioxide Level 25 mmol/L (21-32) 27 mmol/L (21-32) Anion Gap 10 (6-14) 10 (6-14) Blood Urea Nitrogen 6 mg/dL (8-26) 5 mg/dL (8-26) Creatinine 1.3 mg/dL (0.7-1.3) 1.1 mg/dL (0.7-1.3) Estimated GFR (Cockcroft-Gault) 64.3 77.9 BUN/Creatinine Ratio 5 (6-20) Glucose Level 112 mg/dL (70-99) 102 mg/dL (70-99) Calcium Level 8.6 mg/dL (8.5-10.1) 8.9 mg/dL (8.5-10.1) Magnesium Level 1.8 mg/dL (1.8-2.4) Total Bilirubin 0.4 mg/dL (0.2-1.0) Aspartate Amino Transf (AST/SGOT) 14 U/L (15-37) Alanine Aminotransferase (ALT/SGPT) 16 U/L (16-63) Alkaline Phosphatase 73 U/L (46-116) Troponin I Quantitative < 0.017 ng/mL (0.000-0.055) AB-Nhz-P-Type Natriuretic Peptide 68 pg/mL (0-449) Total Protein 6.7 g/dL (6.4-8.2) Albumin 2.9 g/dL (3.4-5.0) Albumin/Globulin Ratio 0.8 (1.0-1.7) Lipase 54 U/L (73-393) Urine Collection Type Unknown Urine Color Yellow Urine Clarity Clear Urine pH 5.5 (<5.0-8.0) Urine Specific [place] <=1.005 (1.000-1.030) Urine Protein Negative mg/dL (NEG-TRACE) Urine Glucose (UA) Negative mg/dL (NEG) Urine Ketones (Stick) Negative mg/dL (NEG) Urine Blood Negative (NEG) Urine Nitrite Negative (NEG) Urine Bilirubin Negative (NEG) Urine Urobilinogen Dipstick 0.2 mg/dL (0.2 mg/dL) Urine Leukocyte Esterase Negative (NEG) Urine RBC 0 /HPF (0-2) Urine WBC Occ /HPF (0-4) Urine Squamous Epithelial Cells Few /LPF Urine Bacteria 0 /HPF (0-FEW) Urine Mucus Slight /LPF Urine Opiates Screen Pos (NEG) Urine Methadone Screen Neg (NEG) Urine Barbiturates Neg (NEG) Urine Phencyclidine Screen Neg (NEG) Urine Amphetamine/Methamphetamine Neg (NEG) Urine Benzodiazepines Screen Neg (NEG) Urine Cocaine Screen Neg (NEG) Urine Cannabinoids Screen Neg (NEG) Urine Ethyl Alcohol Neg (NEG) VTE Prophylaxis Ordered VTE Prophylaxis Devices: No VTE Pharmacological Prophylaxi: No Assessment/Plan Assessment/Plan cant walk leg pain, sciatica dementia Htn, chronic diastolic CHF BPH, Justicifation of Admission Dx: Justifications for Admission: Justification of Admission Dx: Yes HILLARY FRANCIS MD Jun 19, 2020 12:18
[2020-06-19 15:23] VITALS: BP 97/48
[2020-06-19 19:36] VITALS: BP 135/57
[2020-06-19 23:18] VITALS: BP 127/61
[2020-06-20 03:38] VITALS: BP 135/69
[2020-06-20 07:00] VITALS: BP 117/66
[2020-06-20] MEDS ORDERED: IOHEXOL 300 MG/ML 50 ML VIAL. INT ART ONE (08:15)
[2020-06-20] MEDS ORDERED: methylPREDNISolone ACETATE 80 MG/ML VIAL. INJ ONE (08:15)
[2020-06-20] MEDS ORDERED: BUPIVACAINE MPF 0.5% 10 ML VIAL. IJ ONE (08:15)
[2020-06-20] MEDS ORDERED: CONTRAST GIVEN. MC PRN (08:30)
--- NOTE | 2020-06-20 10:52 | NUR ---
SS following for discharge planning. SS reviewed pt chart and discussed with pt RN. Pt is from home with spouse and is currently on room air. Pt having hip injection today. PT/OT ordered. SS will continue to follow for discharge planning.
[2020-06-20 10:57] VITALS: BP 126/60
[2020-06-20] MEDS ORDERED: POTASSIUM CHLORIDE 20 MEQ TABLET.ER. PO ONE (11:00)
--- NOTE | 2020-06-20 11:00 | PDOC ---
PROGRESS NOTES Date of Service: DATE: 06/20/20 TIME: 10:58 Chief Complaint Chief Complaint cant walk leg pain, sciatica, hip bursitis, dementia Htn, chronic diastolic CHF BPH, hypokalemia History of Present Illness History of Present Illness to OR for hip infection today, then PT and Ot may need skilled, dementia, not following commands wel, may need stilled Vitals Vitals Vital Signs Date Time Temp Pulse Resp B/P (MAP) Pulse Ox O2 Delivery O2 Flow Rate FiO2 06/20/20 08:00 Room Air 06/20/20 07:00 98.2 83 18 117/66 (83) 100 98.2 Physical Exam General: Alert, Cooperative Heart: Regular rate Abdomen: Soft Extremities: Other (The skin over the right hip is intact. The gross alignment is normal. There is decreased internal and external rotation of the hip, and pain with range of motion. Light touch sensation seems intact distally. Capillary refill is normal. He cannot lift the right leg from the bed, due to the groin and hip pain. 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 Labs Laboratory Tests Test 06/18/20 19:45 06/18/20 20:17 06/19/20 04:30 06/19/20 09:10 Stool Occult Blood Negative (NEG) White Blood Count 6.1 x10^3/uL (4.0-11.0) 5.5 x10^3/uL (4.0-11.0) Red Blood Count 3.79 x10^6/uL (4.30-5.70) 4.06 x10^6/uL (4.30-5.70) Hemoglobin 9.8 g/dL (13.0-17.5) 10.3 g/dL (13.0-17.5) Hematocrit 29.5 % (39.0-53.0) 32.0 % (39.0-53.0) Mean Corpuscular Volume 78 fL (79-100) 79 fL (79-100) Mean Corpuscular Hemoglobin 26 pg (25-35) 25 pg (25-35) Mean Corpuscular Hemoglobin Concent 33 g/dL (31-37) 32 g/dL (31-37) Red Cell Distribution Width 27.5 % (11.5-14.5) 27.6 % (11.5-14.5) Platelet Count 300 x10^3/uL (140-400) 278 x10^3/uL (140-400) Neutrophils (%) (Auto) 61 % (31-73) Lymphocytes (%) (Auto) 26 % (24-48) Monocytes (%) (Auto) 9 % (0-9) Eosinophils (%) (Auto) 2 % (0-3) Basophils (%) (Auto) 2 % (0-3) Neutrophils # (Auto) 3.8 x10^3/uL (1.8-7.7) Lymphocytes # (Auto) 1.6 x10^3/uL (1.0-4.8) Monocytes # (Auto) 0.6 x10^3/uL (0.0-1.1) Eosinophils # (Auto) 0.1 x10^3/uL (0.0-0.7) Basophils # (Auto) 0.1 x10^3/uL (0.0-0.2) Segmented Neutrophils % 58 % (35-66) Lymphocytes % 26 % (24-48) Monocytes % 11 % (0-10) Eosinophils % 1 % (0-5) Basophils % 4 % (0-3) Platelet Estimate Adequate (ADEQUATE) Poikilocytosis Slight Anisocytosis Marked Microcytosis Mod Target Cells Mod Tear Drop Cells Occ Ovalocytes Few Schistocytes Occ Prothrombin Time 13.5 SEC (11.7-14.0) Prothromb Time International Ratio 1.1 (0.8-1.1) Sodium Level 140 mmol/L (136-145) 145 mmol/L (136-145) Potassium Level 2.8 mmol/L (3.5-5.1) 3.0 mmol/L (3.5-5.1) Chloride Level 105 mmol/L (98-107) 108 mmol/L (98-107) Carbon Dioxide Level 25 mmol/L (21-32) 27 mmol/L (21-32) Anion Gap 10 (6-14) 10 (6-14) Blood Urea Nitrogen 6 mg/dL (8-26) 5 mg/dL (8-26) Creatinine 1.3 mg/dL (0.7-1.3) 1.1 mg/dL (0.7-1.3) Estimated GFR (Cockcroft-Gault) 64.3 77.9 BUN/Creatinine Ratio 5 (6-20) Glucose Level 112 mg/dL (70-99) 102 mg/dL (70-99) Calcium Level 8.6 mg/dL (8.5-10.1) 8.9 mg/dL (8.5-10.1) Magnesium Level 1.8 mg/dL (1.8-2.4) Total Bilirubin 0.4 mg/dL (0.2-1.0) Aspartate Amino Transf (AST/SGOT) 14 U/L (15-37) Alanine Aminotransferase (ALT/SGPT) 16 U/L (16-63) Alkaline Phosphatase 73 U/L (46-116) Troponin I Quantitative < 0.017 ng/mL (0.000-0.055) WK-Sjs-X-Type Natriuretic Peptide 68 pg/mL (0-449) Total Protein 6.7 g/dL (6.4-8.2) Albumin 2.9 g/dL (3.4-5.0) Albumin/Globulin Ratio 0.8 (1.0-1.7) Lipase 54 U/L (73-393) Urine Collection Type Unknown Urine Color Yellow Urine Clarity Clear Urine pH 5.5 (<5.0-8.0) Urine Specific [place] <=1.005 (1.000-1.030) Urine Protein Negative mg/dL (NEG-TRACE) Urine Glucose (UA) Negative mg/dL (NEG) Urine Ketones (Stick) Negative mg/dL (NEG) Urine Blood Negative (NEG) Urine Nitrite Negative (NEG) Urine Bilirubin Negative (NEG) Urine Urobilinogen Dipstick 0.2 mg/dL (0.2 mg/dL) Urine Leukocyte Esterase Negative (NEG) Urine RBC 0 /HPF (0-2) Urine WBC Occ /HPF (0-4) Urine Squamous Epithelial Cells Few /LPF Urine Bacteria 0 /HPF (0-FEW) Urine Mucus Slight /LPF Urine Opiates Screen Pos (NEG) Urine Methadone Screen Neg (NEG) Urine Barbiturates Neg (NEG) Urine Phencyclidine Screen Neg (NEG) Urine Amphetamine/Methamphetamine Neg (NEG) Urine Benzodiazepines Screen Neg (NEG) Urine Cocaine Screen Neg (NEG) Urine Cannabinoids Screen Neg (NEG) Urine Ethyl Alcohol Neg (NEG) Medications Current Medications Potassium Chloride (Klor-Con) 40 meq 1X ONCE PO Last administered on 06/18/20at 21:51; Start 06/18/20 at 21:30; Stop 06/18/20 at 21:31; Status DC Iohexol (Omnipaque 300 Mg/ml) 75 ml 1X ONCE IV ; Start 06/18/20 at 21:45; Stop 06/18/20 at 21:46; Status DC Ondansetron HCl (Zofran) 4 mg 1X ONCE IVP Last administered on 06/18/20at 21:51; Start 06/18/20 at 21:30; Stop 06/18/20 at 21:31; Status DC Info (CONTRAST GIVEN -- Rx MONITORING) 1 each PRN DAILY PRN MC SEE COMMENTS; Start 06/18/20 at 21:30; Stop 06/20/20 at 21:29 Ondansetron HCl (Zofran) 4 mg PRN Q8HRS PRN IV NAUSEA/VOMITING; Start 06/18/20 at 22:30; Stop 06/19/20 at 22:29; Status DC Potassium Chloride (Klor-Con) 40 meq 1X ONCE PO Last administered on 06/19/20at 08:50; Start 06/19/20 at 08:30; Stop 06/19/20 at 08:31; Status DC Magnesium Sulfate 50 ml @ 25 mls/hr 1X ONCE IV Last administered on 06/19/20at 08:52; Start 06/19/20 at 08:30; Stop 06/19/20 at 10:29; Status DC Iohexol (Omnipaque 300 Mg/ml) 50 ml 1X ONCE INT ART Last administered on 06/20/20at 10:30; Start 06/20/20 at 08:15; Stop 06/20/20 at 08:21; Status DC Methylprednisolone Acetate (DEPO-Medrol 80MG VIAL) 80 mg 1X ONCE INJ Last administered on 06/20/20at 10:30; Start 06/20/20 at 08:15; Stop 06/20/20 at 08:21; Status DC Bupivacaine HCl (Sensorcaine Mpf 0.5%) 10 ml 1X ONCE IJ Last administered on 06/20/20at 10:30; Start 06/20/20 at 08:15; Stop 06/20/20 at 08:21; Status DC Info (CONTRAST GIVEN -- Rx MONITORING) 1 each PRN DAILY PRN MC SEE COMMENTS; Start 06/20/20 at 08:30; Stop 06/22/20 at 08:29 Active Scripts Active Reported Latanoprost 2.5 Ml Drops 1 Drop EACHEYE QHS Brimonidine Tartrate 5 Ml Drops 1 Drop EACHEYE BID [place] 5-325 Tablet (Acetaminophen/Hydrocodone Bitart) 1 Each Tablet 1 Tab PO Q4- 6HRS Lovastatin 20 Mg Tablet 20 Mg PO HS Ferrous Sulfate 325 Mg Tablet 325 Mg PO QODAY Doxazosin Mesylate 4 Mg Tablet 1 Tab PO DAILY Lisinopril 20 Mg Tablet 20 Mg PO DAILY Amlodipine Besylate 10 Mg Tablet 10 Mg PO DAILY Vitals/I & O Vital Sign - Last 24 Hours 06/19/20 06/19/20 06/19/20 06/19/20 11:07 15:23 19:36 20:00 Temp 98.6 98.4 98.9 98.6 98.4 98.9 Pulse 96 80 78 Resp 20 18 16 B/P (MAP) 136/67 (90) 97/48 (64) 135/57 (83) Pulse Ox 96 98 96 O2 Delivery Room Air Room Air Room Air Room Air 06/19/20 06/20/20 06/20/20 06/20/20 23:18 03:38 07:00 08:00 Temp 98.6 98.7 98.2 98.6 98.7 98.2 Pulse 84 89 83 Resp 18 16 18 B/P (MAP) 127/61 (83) 135/69 (91) 117/66 (83) Pulse Ox 98 97 100 O2 Delivery Room Air Room Air Room Air Room Air Intake and Output 06/19/20 06/19/20 06/20/20 15:00 23:00 07:00 Intake Total 460 ml 720 ml 170 ml Output Total 400 ml 845 ml 525 ml Balance 60 ml -125 ml -355 ml Justicifation of Admission Dx: Justifications for Admission: Justification of Admission Dx: Yes HILLARY FRANCIS MD Jun 20, 2020 11:00
[2020-06-20] MEDS ORDERED: MAGNESIUM SULFATE 2GM 50 ML IV ONE (11:30)
[2020-06-20] MEDS: oxyCODONE/APAP 5/325 1 TAB TABLET PO PRN (12:22)
[2020-06-20 14:37] VITALS: BP 134/59
--- NOTE | 2020-06-20 16:47 | RAD ---
EXAM: Fluoroscopically guided right hip injection for local anesthetic administration. HISTORY: 80-year-old man with right hip pain referred for imaging guided right hip injection for local anesthetic administration. TECHNIQUE: The risks and benefits of the procedure were discussed with the patient and written and verbal consent were obtained. A time out procedure was performed. Fluoroscopic imaging of the right hip was performed. The overlying skin was sterilely prepped and infiltrated with 1% lidocaine for local anesthesia. A 22-gauge spinal needle was then advanced into the joint space under fluoroscopic guidance. Intra-articular positioning positioning was confirmed with a small injection of iodinated contrast. A small amount of clear yellow fluid from the hip joint spontaneously returned and was discarded. Then, 80 mg of Depo-Medrol admixed with 1 mL of 0.5 percent bupivacaine was injected under fluoroscopic control. Instrumentation was withdrawn and a sterile dressing placed. There were no immediate complications. Fluoroscopy time 0.4 minutes. 3 images were obtained. Patient was subsequently transferred back to the inpatient floor for further care and management. IMPRESSION: Successful fluoroscopically guided right hip injection for local anesthetic administration. No apparent complications. Electronically signed by: Fadi Vogel MD (06/20/2020 4:44 PM) [id number]
[2020-06-20 19:38] VITALS: BP 147/68
[2020-06-20 23:42] VITALS: BP 124/53
[2020-06-21 02:32] VITALS: BP 146/72
[2020-06-21 07:00] VITALS: BP 128/63
[2020-06-21] MEDS: FERROUS SULFATE 325 MG TABLET. PO SCH (08:32)
[2020-06-21] MEDS: DOCUSATE SODIUM 100 MG CAPSULE. PO SCH (08:32)
[2020-06-21 11:11] VITALS: BP 106/55
[2020-06-21 12:49] LABS: HEMATOCRIT 32.6 % (39.0-53.0); HEMOGLOBIN 10.2 g/dL (13.0-17.5); RED BLOOD COUNT 4.05 x10^6/uL (4.30-5.70); RED CELL DISTRIBUTION WIDTH 26.6 % (11.5-14.5); WHITE BLOOD COUNT 7.2 x10^3/uL (4.0-11.0)
[2020-06-21 13:06] LABS: ALBUMIN 2.9 g/dL (3.4-5.0); ALBUMIN/GLOBULIN RATIO 0.7 (1.0-1.7); CALCIUM 8.9 mg/dL (8.5-10.1); CREATININE 1.1 mg/dL (0.7-1.3); GFR 77.9; POTASSIUM 4.1 mmol/L (3.5-5.1); TOTAL BILIRUBIN 0.4 mg/dL (0.2-1.0); TOTAL PROTEIN 7.3 g/dL (6.4-8.2)
--- NOTE | 2020-06-21 13:22 | NUR ---
SS following up with discharge planning. SS reviewed pt chart and discussed with pt RN. Pt is currently on room air. PT/OT recommended care home unit. SS contacted pt's family and discussed. Pt's family reported [facility] They reported that pt is in his co-pay days. Pt's family reported that [facility] visited pt in the home on 06/18/2020 and accepted him pending insurance authorization. Pt's family requested SS phoned and fax referral to [facility], ; fax [phone]. SS sent referral as requested. SS will await acceptance decision and insurance determination and will proceed accordingly.
[2020-06-21 15:19] VITALS: BP 145/60
--- NOTE | 2020-06-21 17:26 | PDOC ---
PROGRESS NOTES Date of Service: DATE: 06/21/20 TIME: 17:25 Chief Complaint Chief Complaint unable to ambulate, leg pain, sciatica, hip bursitis, dementia Htn, chronic diastolic CHF BPH, hypokalemia History of Present Illness History of Present Illness to OR for hip infection today, then PT and Ot may need skilled, dementia, not following commands wel, may need stilled Vitals Vitals Vital Signs Date Time Temp Pulse Resp B/P (MAP) Pulse Ox O2 Delivery O2 Flow Rate FiO2 06/21/20 15:19 98.5 69 20 145/60 (88) 99 Room Air 98.5 Physical Exam General: Alert, Cooperative Heart: Regular rate Abdomen: Soft Extremities: Other (The skin over the right hip is intact. The gross alignment is normal. There is decreased internal and external rotation of the hip, and pain with range of motion. Light touch sensation seems intact distally. Capillary refill is normal. He cannot lift the right leg from the bed, due to the groin and hip pain. I believe this is hip osteoarthritis.) Skin: No rashes, No significant lesion Labs LABS Laboratory Tests Test 06/21/20 12:25 White Blood Count 7.2 x10^3/uL (4.0-11.0) Red Blood Count 4.05 x10^6/uL (4.30-5.70) Hemoglobin 10.2 g/dL (13.0-17.5) Hematocrit 32.6 % (39.0-53.0) Mean Corpuscular Volume 80 fL (79-100) Mean Corpuscular Hemoglobin 25 pg (25-35) Mean Corpuscular Hemoglobin Concent 31 g/dL (31-37) Red Cell Distribution Width 26.6 % (11.5-14.5) Platelet Count 304 x10^3/uL (140-400) Sodium Level 143 mmol/L (136-145) Potassium Level 4.1 mmol/L (3.5-5.1) Chloride Level 105 mmol/L (98-107) Carbon Dioxide Level 28 mmol/L (21-32) Anion Gap 10 (6-14) Blood Urea Nitrogen 3 mg/dL (8-26) Creatinine 1.1 mg/dL (0.7-1.3) Estimated GFR (Cockcroft-Gault) 77.9 BUN/Creatinine Ratio 3 (6-20) Glucose Level 164 mg/dL (70-99) Calcium Level 8.9 mg/dL (8.5-10.1) Total Bilirubin 0.4 mg/dL (0.2-1.0) Aspartate Amino Transf (AST/SGOT) 11 U/L (15-37) Alanine Aminotransferase (ALT/SGPT) 14 U/L (16-63) Alkaline Phosphatase 70 U/L (46-116) Total Protein 7.3 g/dL (6.4-8.2) Albumin 2.9 g/dL (3.4-5.0) Albumin/Globulin Ratio 0.7 (1.0-1.7) Assessment and Plan Assessmemt and Plan Problems Medical Problems: (1) Hypokalemia Status: Acute (2) Unable to ambulate Status: Acute Comment Review of Relevant I have reviewed the following items miranda (where applicable) has been applied. Labs Laboratory Tests Test 06/21/20 12:25 White Blood Count 7.2 x10^3/uL (4.0-11.0) Red Blood Count 4.05 x10^6/uL (4.30-5.70) Hemoglobin 10.2 g/dL (13.0-17.5) Hematocrit 32.6 % (39.0-53.0) Mean Corpuscular Volume 80 fL (79-100) Mean Corpuscular Hemoglobin 25 pg (25-35) Mean Corpuscular Hemoglobin Concent 31 g/dL (31-37) Red Cell Distribution Width 26.6 % (11.5-14.5) Platelet Count 304 x10^3/uL (140-400) Sodium Level 143 mmol/L (136-145) Potassium Level 4.1 mmol/L (3.5-5.1) Chloride Level 105 mmol/L (98-107) Carbon Dioxide Level 28 mmol/L (21-32) Anion Gap 10 (6-14) Blood Urea Nitrogen 3 mg/dL (8-26) Creatinine 1.1 mg/dL (0.7-1.3) Estimated GFR (Cockcroft-Gault) 77.9 BUN/Creatinine Ratio 3 (6-20) Glucose Level 164 mg/dL (70-99) Calcium Level 8.9 mg/dL (8.5-10.1) Total Bilirubin 0.4 mg/dL (0.2-1.0) Aspartate Amino Transf (AST/SGOT) 11 U/L (15-37) Alanine Aminotransferase (ALT/SGPT) 14 U/L (16-63) Alkaline Phosphatase 70 U/L (46-116) Total Protein 7.3 g/dL (6.4-8.2) Albumin 2.9 g/dL (3.4-5.0) Albumin/Globulin Ratio 0.7 (1.0-1.7) Laboratory Tests Test 06/21/20 12:25 White Blood Count 7.2 x10^3/uL (4.0-11.0) Red Blood Count 4.05 x10^6/uL (4.30-5.70) Hemoglobin 10.2 g/dL (13.0-17.5) Hematocrit 32.6 % (39.0-53.0) Mean Corpuscular Volume 80 fL (79-100) Mean Corpuscular Hemoglobin 25 pg (25-35) Mean Corpuscular Hemoglobin Concent 31 g/dL (31-37) Red Cell Distribution Width 26.6 % (11.5-14.5) Platelet Count 304 x10^3/uL (140-400) Sodium Level 143 mmol/L (136-145) Potassium Level 4.1 mmol/L (3.5-5.1) Chloride Level 105 mmol/L (98-107) Carbon Dioxide Level 28 mmol/L (21-32) Anion Gap 10 (6-14) Blood Urea Nitrogen 3 mg/dL (8-26) Creatinine 1.1 mg/dL (0.7-1.3) Estimated GFR (Cockcroft-Gault) 77.9 BUN/Creatinine Ratio 3 (6-20) Glucose Level 164 mg/dL (70-99) Calcium Level 8.9 mg/dL (8.5-10.1) Total Bilirubin 0.4 mg/dL (0.2-1.0) Aspartate Amino Transf (AST/SGOT) 11 U/L (15-37) Alanine Aminotransferase (ALT/SGPT) 14 U/L (16-63) Alkaline Phosphatase 70 U/L (46-116) Total Protein 7.3 g/dL (6.4-8.2) Albumin 2.9 g/dL (3.4-5.0) Albumin/Globulin Ratio 0.7 (1.0-1.7) Medications Current Medications Potassium Chloride (Klor-Con) 40 meq 1X ONCE PO Last administered on 06/18/20at 21:51; Start 06/18/20 at 21:30; Stop 06/18/20 at 21:31; Status DC Iohexol (Omnipaque 300 Mg/ml) 75 ml 1X ONCE IV ; Start 06/18/20 at 21:45; Stop 06/18/20 at 21:46; Status DC Ondansetron HCl (Zofran) 4 mg 1X ONCE IVP Last administered on 06/18/20at 21:51; Start 06/18/20 at 21:30; Stop 06/18/20 at 21:31; Status DC Info (CONTRAST GIVEN -- Rx MONITORING) 1 each PRN DAILY PRN MC SEE COMMENTS; Start 06/18/20 at 21:30; Stop 06/20/20 at 15:53; Status DC Ondansetron HCl (Zofran) 4 mg PRN Q8HRS PRN IV NAUSEA/VOMITING; Start 06/18/20 at 22:30; Stop 06/19/20 at 22:29; Status DC Potassium Chloride (Klor-Con) 40 meq 1X ONCE PO Last administered on 06/19/20at 08:50; Start 06/19/20 at 08:30; Stop 06/19/20 at 08:31; Status DC Magnesium Sulfate 50 ml @ 25 mls/hr 1X ONCE IV Last administered on 06/19/20at 08:52; Start 06/19/20 at 08:30; Stop 06/19/20 at 10:29; Status DC Iohexol (Omnipaque 300 Mg/ml) 50 ml 1X ONCE INT ART Last administered on 06/20/20at 10:30; Start 06/20/20 at 08:15; Stop 06/20/20 at 08:21; Status DC Methylprednisolone Acetate (DEPO-Medrol 80MG VIAL) 80 mg 1X ONCE INJ Last administered on 06/20/20at 10:30; Start 06/20/20 at 08:15; Stop 06/20/20 at 08:21; Status DC Bupivacaine HCl (Sensorcaine Mpf 0.5%) 10 ml 1X ONCE IJ Last administered on 06/20/20at 10:30; Start 06/20/20 at 08:15; Stop 06/20/20 at 08:21; Status DC Info (CONTRAST GIVEN -- Rx MONITORING) 1 each PRN DAILY PRN MC SEE COMMENTS; Start 06/20/20 at 08:30; Stop 06/22/20 at 08:29 Oxycodone/ Acetaminophen (Percocet 5/325) 1 tab PRN Q4HRS PRN PO PAIN Last administered on 06/20/20at 12:22; Start 06/20/20 at 11:00 Docusate Sodium (Colace) 100 mg DAILY PO Last administered on 06/21/20at 08:32; Start 06/21/20 at 09:00 Potassium Chloride (Klor-Con) 40 meq 1X ONCE PO Last administered on 06/20/20at 12:22; Start 06/20/20 at 11:00; Stop 06/20/20 at 11:10; Status DC Ferrous Sulfate (Feosol) 325 mg DAILYWBKFT PO Last administered on 06/21/20at 08:32; Start 06/21/20 at 08:00 Magnesium Sulfate 50 ml @ 25 mls/hr 1X ONCE IV Last administered on 06/20/20at 12:23; Start 06/20/20 at 11:30; Stop 06/20/20 at 13:29; Status DC Active Scripts Active Reported Latanoprost 2.5 Ml Drops 1 Drop EACHEYE QHS Brimonidine Tartrate 5 Ml Drops 1 Drop EACHEYE BID [place] 5-325 Tablet (Acetaminophen/Hydrocodone Bitart) 1 Each Tablet 1 Tab PO Q4- 6HRS Lovastatin 20 Mg Tablet 20 Mg PO HS Ferrous Sulfate 325 Mg Tablet 325 Mg PO QODAY Doxazosin Mesylate 4 Mg Tablet 1 Tab PO DAILY Lisinopril 20 Mg Tablet 20 Mg PO DAILY Amlodipine Besylate 10 Mg Tablet 10 Mg PO DAILY Vitals/I & O Vital Sign - Last 24 Hours 06/20/20 06/20/20 06/20/20 06/21/20 19:38 20:00 23:42 02:32 Temp 98.8 98.4 98.4 98.8 98.4 98.4 Pulse 85 74 78 Resp 16 16 16 B/P (MAP) 147/68 (94) 124/53 (76) 146/72 (96) Pulse Ox 95 95 98 O2 Delivery Room Air Room Air Room Air Room Air 06/21/20 06/21/20 06/21/20 06/21/20 07:00 08:00 11:11 15:19 Temp 98.6 98.5 98.5 98.6 98.5 98.5 Pulse 81 83 69 Resp 18 18 20 B/P (MAP) 128/63 (84) 106/55 (72) 145/60 (88) Pulse Ox 95 97 99 O2 Delivery Room Air Room Air Room Air Room Air Intake and Output 06/20/20 06/20/20 06/21/20 15:00 23:00 07:00 Intake Total 240 ml 340 ml 440 ml Output Total 300 ml 275 ml Balance -60 ml 65 ml 440 ml Justicifation of Admission Dx: Justifications for Admission: Justification of Admission Dx: Yes HILLARY FRANCIS MD Jun 21, 2020 17:26
[2020-06-21 19:00] VITALS: BP 161/76
[2020-06-21 23:00] VITALS: BP 162/74
[2020-06-22 03:45] VITALS: BP 156/69
[2020-06-22 07:00] VITALS: BP 122/71
[2020-06-22] MEDS: DOCUSATE SODIUM 100 MG CAPSULE. PO SCH (08:18)
[2020-06-22] MEDS: FERROUS SULFATE 325 MG TABLET. PO SCH (08:18)
[2020-06-22] MEDS: oxyCODONE/APAP 5/325 1 TAB TABLET PO PRN (08:21)
[2020-06-22 11:00] VITALS: BP 132/64
[2020-06-22] MEDS: LISINOPRIL 20 MG TABLET PO SCH (12:30)
--- NOTE | 2020-06-22 12:42 | PDOC ---
PROGRESS NOTES Date of Service: DATE: 06/22/20 TIME: 12:29 Chief Complaint Chief Complaint unable to ambulate, leg pain, sciatica, hip bursitis, dementia Htn, chronic diastolic CHF BPH, hypokalemia History of Present Illness History of Present Illness Patient reports improvement in pain after hip injection yesterday. His ambulation is still limited and states he requires assistance. He would be agreeable to skilled rehab. Vitals Vitals Vital Signs Date Time Temp Pulse Resp B/P (MAP) Pulse Ox O2 Delivery O2 Flow Rate FiO2 06/22/20 11:00 98.0 60 20 132/64 (86) 97 Room Air 98.0 Physical Exam General: Alert, Cooperative Heart: Regular rate Abdomen: Soft Extremities: Other (The skin over the right hip is intact. The gross alignment is normal. There is decreased internal and external rotation of the hip, and pain with range of motion. Light touch sensation seems intact distally. Capillary refill is normal. He cannot lift the right leg from the bed, due to the groin and hip pain. I believe this is hip osteoarthritis.) Skin: No rashes, No significant lesion Review of Systems Review of Systems Right hip pain, no fever. All other systems negative. Assessment and Plan Assessmemt and Plan Problems Medical Problems: (1) Hypokalemia Status: Acute (2) Unable to ambulate Status: Acute Comment Review of Relevant I have reviewed the following items miranda (where applicable) has been applied. Labs Laboratory Tests Test 06/21/20 12:25 White Blood Count 7.2 x10^3/uL (4.0-11.0) Red Blood Count 4.05 x10^6/uL (4.30-5.70) Hemoglobin 10.2 g/dL (13.0-17.5) Hematocrit 32.6 % (39.0-53.0) Mean Corpuscular Volume 80 fL (79-100) Mean Corpuscular Hemoglobin 25 pg (25-35) Mean Corpuscular Hemoglobin Concent 31 g/dL (31-37) Red Cell Distribution Width 26.6 % (11.5-14.5) Platelet Count 304 x10^3/uL (140-400) Sodium Level 143 mmol/L (136-145) Potassium Level 4.1 mmol/L (3.5-5.1) Chloride Level 105 mmol/L (98-107) Carbon Dioxide Level 28 mmol/L (21-32) Anion Gap 10 (6-14) Blood Urea Nitrogen 3 mg/dL (8-26) Creatinine 1.1 mg/dL (0.7-1.3) Estimated GFR (Cockcroft-Gault) 77.9 BUN/Creatinine Ratio 3 (6-20) Glucose Level 164 mg/dL (70-99) Calcium Level 8.9 mg/dL (8.5-10.1) Total Bilirubin 0.4 mg/dL (0.2-1.0) Aspartate Amino Transf (AST/SGOT) 11 U/L (15-37) Alanine Aminotransferase (ALT/SGPT) 14 U/L (16-63) Alkaline Phosphatase 70 U/L (46-116) Total Protein 7.3 g/dL (6.4-8.2) Albumin 2.9 g/dL (3.4-5.0) Albumin/Globulin Ratio 0.7 (1.0-1.7) Medications Current Medications Potassium Chloride (Klor-Con) 40 meq 1X ONCE PO Last administered on 06/18/20at 21:51; Start 06/18/20 at 21:30; Stop 06/18/20 at 21:31; Status DC Iohexol (Omnipaque 300 Mg/ml) 75 ml 1X ONCE IV ; Start 06/18/20 at 21:45; Stop 06/18/20 at 21:46; Status DC Ondansetron HCl (Zofran) 4 mg 1X ONCE IVP Last administered on 06/18/20at 21:51; Start 06/18/20 at 21:30; Stop 06/18/20 at 21:31; Status DC Info (CONTRAST GIVEN -- Rx MONITORING) 1 each PRN DAILY PRN MC SEE COMMENTS; Start 06/18/20 at 21:30; Stop 06/20/20 at 15:53; Status DC Ondansetron HCl (Zofran) 4 mg PRN Q8HRS PRN IV NAUSEA/VOMITING; Start 06/18/20 at 22:30; Stop 06/19/20 at 22:29; Status DC Potassium Chloride (Klor-Con) 40 meq 1X ONCE PO Last administered on 06/19/20at 08:50; Start 06/19/20 at 08:30; Stop 06/19/20 at 08:31; Status DC Magnesium Sulfate 50 ml @ 25 mls/hr 1X ONCE IV Last administered on 06/19/20at 08:52; Start 06/19/20 at 08:30; Stop 06/19/20 at 10:29; Status DC Iohexol (Omnipaque 300 Mg/ml) 50 ml 1X ONCE INT ART Last administered on 06/20/20at 10:30; Start 06/20/20 at 08:15; Stop 06/20/20 at 08:21; Status DC Methylprednisolone Acetate (DEPO-Medrol 80MG VIAL) 80 mg 1X ONCE INJ Last administered on 06/20/20at 10:30; Start 06/20/20 at 08:15; Stop 06/20/20 at 08:21; Status DC Bupivacaine HCl (Sensorcaine Mpf 0.5%) 10 ml 1X ONCE IJ Last administered on 06/20/20at 10:30; Start 06/20/20 at 08:15; Stop 06/20/20 at 08:21; Status DC Info (CONTRAST GIVEN -- Rx MONITORING) 1 each PRN DAILY PRN MC SEE COMMENTS; Start 06/20/20 at 08:30; Stop 06/22/20 at 08:29; Status DC Oxycodone/ Acetaminophen (Percocet 5/325) 1 tab PRN Q4HRS PRN PO PAIN Last administered on 06/22/20at 08:21; Start 06/20/20 at 11:00 Docusate Sodium (Colace) 100 mg DAILY PO Last administered on 06/22/20at 08:18; Start 06/21/20 at 09:00 Potassium Chloride (Klor-Con) 40 meq 1X ONCE PO Last administered on 06/20/20at 12:22; Start 06/20/20 at 11:00; Stop 06/20/20 at 11:10; Status DC Ferrous Sulfate (Feosol) 325 mg DAILYWBKFT PO Last administered on 06/22/20at 08:18; Start 06/21/20 at 08:00 Magnesium Sulfate 50 ml @ 25 mls/hr 1X ONCE IV Last administered on 06/20/20at 12:23; Start 06/20/20 at 11:30; Stop 06/20/20 at 13:29; Status DC Amlodipine Besylate (Norvasc) 10 mg DAILY PO ; Start 06/22/20 at 12:30 Doxazosin Mesylate (Cardura) 4 mg DAILY PO ; Start 06/22/20 at 12:30 Lisinopril (Prinivil) 20 mg DAILY PO ; Start 06/22/20 at 12:30 Active Scripts Active Reported Latanoprost 2.5 Ml Drops 1 Drop EACHEYE QHS Brimonidine Tartrate 5 Ml Drops 1 Drop EACHEYE BID [place] 5-325 Tablet (Acetaminophen/Hydrocodone Bitart) 1 Each Tablet 1 Tab PO Q4- 6HRS Lovastatin 20 Mg Tablet 20 Mg PO HS Ferrous Sulfate 325 Mg Tablet 325 Mg PO QODAY Doxazosin Mesylate 4 Mg Tablet 1 Tab PO DAILY Lisinopril 20 Mg Tablet 20 Mg PO DAILY Amlodipine Besylate 10 Mg Tablet 10 Mg PO DAILY Vitals/I & O Vital Sign - Last 24 Hours 06/21/20 06/21/20 06/21/20 06/21/20 15:19 19:00 20:00 23:00 Temp 98.5 98.6 98.4 98.5 98.6 98.4 Pulse 69 80 69 Resp 20 20 22 B/P (MAP) 145/60 (88) 161/76 (104) 162/74 (103) Pulse Ox 99 97 96 O2 Delivery Room Air Room Air Room Air Room Air 06/22/20 06/22/20 06/22/20 03:45 07:00 11:00 Temp 98.4 98.8 98.0 98.4 98.8 98.0 Pulse 59 66 60 Resp 19 18 20 B/P (MAP) 156/69 (98) 122/71 (88) 132/64 (86) Pulse Ox 98 97 97 O2 Delivery Room Air Room Air Room Air Intake and Output 06/21/20 06/21/20 06/22/20 15:00 23:00 07:00 Intake Total 840 ml 150 ml Output Total 400 ml 100 ml 1200 ml Balance 440 ml -100 ml -1050 ml Justicifation of Admission Dx: Justifications for Admission: Justification of Admission Dx: Yes JENNY MARTINEZ MD Jun 22, 2020 12:42
[2020-06-22] MEDS: amLODIPine BESYLATE 10 MG TABLET PO SCH (13:19)
[2020-06-22] MEDS: DOXAZOSIN MESYLATE 4 MG TABLET. PO SCH (13:19)
[2020-06-22 15:00] VITALS: BP 128/62
[2020-06-22 19:40] VITALS: BP 153/76
[2020-06-22 23:39] VITALS: BP 145/49
[2020-06-23 03:40] VITALS: BP 142/67
[2020-06-23 07:00] VITALS: BP 122/77
[2020-06-23] MEDS: DOCUSATE SODIUM 100 MG CAPSULE. PO SCH (09:00)
[2020-06-23] MEDS: DOXAZOSIN MESYLATE 4 MG TABLET. PO SCH (09:45)
[2020-06-23] MEDS: LISINOPRIL 20 MG TABLET PO SCH (09:46)
[2020-06-23] MEDS: amLODIPine BESYLATE 10 MG TABLET PO SCH (09:46)
[2020-06-23] MEDS: FERROUS SULFATE 325 MG TABLET. PO SCH (09:46)
[2020-06-23 10:50] LABS: HEMATOCRIT 32.3 % (39.0-53.0); HEMOGLOBIN 10.3 g/dL (13.0-17.5); RED BLOOD COUNT 4.03 x10^6/uL (4.30-5.70); RED CELL DISTRIBUTION WIDTH 26.8 % (11.5-14.5); WHITE BLOOD COUNT 6.6 x10^3/uL (4.0-11.0)
[2020-06-23 10:58] LABS: CALCIUM 8.4 mg/dL (8.5-10.1)
[2020-06-23 11:02] LABS: POTASSIUM 2.7 mmol/L (3.5-5.1)
[2020-06-23] MEDS ORDERED: POTASSIUM CHLORIDE 20 MEQ TABLET.ER. PO ONE (11:15)
--- NOTE | 2020-06-23 11:18 | PDOC ---
PROGRESS NOTES Date of Service: DATE: 06/23/20 TIME: 11:17 Chief Complaint Chief Complaint unable to ambulate, leg pain, sciatica, hip bursitis, dementia Htn, chronic diastolic CHF BPH, hypokalemia History of Present Illness History of Present Illness plan skilled in AM Patient reports improvement in pain after hip injection yesterday. His ambulation is still limited and states he requires assistance. He would be agreeable to skilled rehab. Vitals Vitals Vital Signs Date Time Temp Pulse Resp B/P (MAP) Pulse Ox O2 Delivery O2 Flow Rate FiO2 06/23/20 09:46 85 06/23/20 07:00 98.7 18 122/77 (92) 98 Room Air 98.7 Physical Exam General: Alert, Cooperative Heart: Regular rate Abdomen: Soft Extremities: Other (The skin over the right hip is intact. The gross alignment is normal. There is decreased internal and external rotation of the hip, and pain with range of motion. Light touch sensation seems intact distally. Capillary refill is normal. He cannot lift the right leg from the bed, due to the groin and hip pain. I believe this is hip osteoarthritis.) Skin: No rashes, No significant lesion Labs LABS Laboratory Tests Test 06/23/20 10:00 White Blood Count 6.6 x10^3/uL (4.0-11.0) Red Blood Count 4.03 x10^6/uL (4.30-5.70) Hemoglobin 10.3 g/dL (13.0-17.5) Hematocrit 32.3 % (39.0-53.0) Mean Corpuscular Volume 80 fL (79-100) Mean Corpuscular Hemoglobin 26 pg (25-35) Mean Corpuscular Hemoglobin Concent 32 g/dL (31-37) Red Cell Distribution Width 26.8 % (11.5-14.5) Platelet Count 293 x10^3/uL (140-400) Sodium Level 143 mmol/L (136-145) Potassium Level 2.7 mmol/L (3.5-5.1) Chloride Level 106 mmol/L (98-107) Carbon Dioxide Level 28 mmol/L (21-32) Anion Gap 9 (6-14) Blood Urea Nitrogen 5 mg/dL (8-26) Creatinine 1.0 mg/dL (0.7-1.3) Estimated GFR (Cockcroft-Gault) 87.0 Glucose Level 152 mg/dL (70-99) Calcium Level 8.4 mg/dL (8.5-10.1) Assessment and Plan Assessmemt and Plan Problems Medical Problems: (1) Hypokalemia Status: Acute (2) Unable to ambulate Status: Acute Comment Review of Relevant I have reviewed the following items miranda (where applicable) has been applied. Labs Laboratory Tests Test 06/21/20 12:25 06/21/20 16:30 06/23/20 10:00 White Blood Count 7.2 x10^3/uL (4.0-11.0) 6.6 x10^3/uL (4.0-11.0) Red Blood Count 4.05 x10^6/uL (4.30-5.70) 4.03 x10^6/uL (4.30-5.70) Hemoglobin 10.2 g/dL (13.0-17.5) 10.3 g/dL (13.0-17.5) Hematocrit 32.6 % (39.0-53.0) 32.3 % (39.0-53.0) Mean Corpuscular Volume 80 fL (79-100) 80 fL (79-100) Mean Corpuscular Hemoglobin 25 pg (25-35) 26 pg (25-35) Mean Corpuscular Hemoglobin Concent 31 g/dL (31-37) 32 g/dL (31-37) Red Cell Distribution Width 26.6 % (11.5-14.5) 26.8 % (11.5-14.5) Platelet Count 304 x10^3/uL (140-400) 293 x10^3/uL (140-400) Sodium Level 143 mmol/L (136-145) 143 mmol/L (136-145) Potassium Level 4.1 mmol/L (3.5-5.1) 2.7 mmol/L (3.5-5.1) Chloride Level 105 mmol/L (98-107) 106 mmol/L (98-107) Carbon Dioxide Level 28 mmol/L (21-32) 28 mmol/L (21-32) Anion Gap 10 (6-14) 9 (6-14) Blood Urea Nitrogen 3 mg/dL (8-26) 5 mg/dL (8-26) Creatinine 1.1 mg/dL (0.7-1.3) 1.0 mg/dL (0.7-1.3) Estimated GFR (Cockcroft-Gault) 77.9 87.0 BUN/Creatinine Ratio 3 (6-20) Glucose Level 164 mg/dL (70-99) 152 mg/dL (70-99) Calcium Level 8.9 mg/dL (8.5-10.1) 8.4 mg/dL (8.5-10.1) Total Bilirubin 0.4 mg/dL (0.2-1.0) Aspartate Amino Transf (AST/SGOT) 11 U/L (15-37) Alanine Aminotransferase (ALT/SGPT) 14 U/L (16-63) Alkaline Phosphatase 70 U/L (46-116) Total Protein 7.3 g/dL (6.4-8.2) Albumin 2.9 g/dL (3.4-5.0) Albumin/Globulin Ratio 0.7 (1.0-1.7) Coronavirus (PCR) Not detected (Not Detected) Laboratory Tests Test 06/23/20 10:00 White Blood Count 6.6 x10^3/uL (4.0-11.0) Red Blood Count 4.03 x10^6/uL (4.30-5.70) Hemoglobin 10.3 g/dL (13.0-17.5) Hematocrit 32.3 % (39.0-53.0) Mean Corpuscular Volume 80 fL (79-100) Mean Corpuscular Hemoglobin 26 pg (25-35) Mean Corpuscular Hemoglobin Concent 32 g/dL (31-37) Red Cell Distribution Width 26.8 % (11.5-14.5) Platelet Count 293 x10^3/uL (140-400) Sodium Level 143 mmol/L (136-145) Potassium Level 2.7 mmol/L (3.5-5.1) Chloride Level 106 mmol/L (98-107) Carbon Dioxide Level 28 mmol/L (21-32) Anion Gap 9 (6-14) Blood Urea Nitrogen 5 mg/dL (8-26) Creatinine 1.0 mg/dL (0.7-1.3) Estimated GFR (Cockcroft-Gault) 87.0 Glucose Level 152 mg/dL (70-99) Calcium Level 8.4 mg/dL (8.5-10.1) Medications Current Medications Potassium Chloride (Klor-Con) 40 meq 1X ONCE PO Last administered on 06/18/20at 21:51; Start 06/18/20 at 21:30; Stop 06/18/20 at 21:31; Status DC Iohexol (Omnipaque 300 Mg/ml) 75 ml 1X ONCE IV ; Start 06/18/20 at 21:45; Stop 06/18/20 at 21:46; Status DC Ondansetron HCl (Zofran) 4 mg 1X ONCE IVP Last administered on 06/18/20at 21:51; Start 06/18/20 at 21:30; Stop 06/18/20 at 21:31; Status DC Info (CONTRAST GIVEN -- Rx MONITORING) 1 each PRN DAILY PRN MC SEE COMMENTS; Start 06/18/20 at 21:30; Stop 06/20/20 at 15:53; Status DC Ondansetron HCl (Zofran) 4 mg PRN Q8HRS PRN IV NAUSEA/VOMITING; Start 06/18/20 at 22:30; Stop 06/19/20 at 22:29; Status DC Potassium Chloride (Klor-Con) 40 meq 1X ONCE PO Last administered on 06/19/20at 08:50; Start 06/19/20 at 08:30; Stop 06/19/20 at 08:31; Status DC Magnesium Sulfate 50 ml @ 25 mls/hr 1X ONCE IV Last administered on 06/19/20at 08:52; Start 06/19/20 at 08:30; Stop 06/19/20 at 10:29; Status DC Iohexol (Omnipaque 300 Mg/ml) 50 ml 1X ONCE INT ART Last administered on 06/20/20at 10:30; Start 06/20/20 at 08:15; Stop 06/20/20 at 08:21; Status DC Methylprednisolone Acetate (DEPO-Medrol 80MG VIAL) 80 mg 1X ONCE INJ Last administered on 06/20/20at 10:30; Start 06/20/20 at 08:15; Stop 06/20/20 at 08:21; Status DC Bupivacaine HCl (Sensorcaine Mpf 0.5%) 10 ml 1X ONCE IJ Last administered on 06/20/20at 10:30; Start 06/20/20 at 08:15; Stop 06/20/20 at 08:21; Status DC Info (CONTRAST GIVEN -- Rx MONITORING) 1 each PRN DAILY PRN MC SEE COMMENTS; Start 06/20/20 at 08:30; Stop 06/22/20 at 08:29; Status DC Oxycodone/ Acetaminophen (Percocet 5/325) 1 tab PRN Q4HRS PRN PO PAIN Last administered on 06/22/20at 08:21; Start 06/20/20 at 11:00 Docusate Sodium (Colace) 100 mg DAILY PO Last administered on 06/22/20at 08:18; Start 06/21/20 at 09:00 Potassium Chloride (Klor-Con) 40 meq 1X ONCE PO Last administered on 06/20/20at 12:22; Start 06/20/20 at 11:00; Stop 06/20/20 at 11:10; Status DC Ferrous Sulfate (Feosol) 325 mg DAILYWBKFT PO Last administered on 06/23/20at 09:46; Start 06/21/20 at 08:00 Magnesium Sulfate 50 ml @ 25 mls/hr 1X ONCE IV Last administered on 06/20/20at 12:23; Start 06/20/20 at 11:30; Stop 06/20/20 at 13:29; Status DC Amlodipine Besylate (Norvasc) 10 mg DAILY PO Last administered on 06/23/20at 09:46; Start 06/22/20 at 12:30 Doxazosin Mesylate (Cardura) 4 mg DAILY PO Last administered on 06/23/20at 09:45; Start 06/22/20 at 12:30 Lisinopril (Prinivil) 20 mg DAILY PO Last administered on 06/23/20at 09:46; Start 06/22/20 at 12:30 Potassium Chloride (Klor-Con) 40 meq BIDWMEALS PO ; Start 06/23/20 at 17:00 Potassium Chloride (Klor-Con) 40 meq 1X ONCE PO ; Start 06/23/20 at 11:15; Stop 06/23/20 at 11:16; Status DC Magnesium Oxide (Magnesium Oxide) 400 mg DAILY PO ; Start 06/23/20 at 11:30 Active Scripts Active Reported Latanoprost 2.5 Ml Drops 1 Drop EACHEYE QHS Brimonidine Tartrate 5 Ml Drops 1 Drop EACHEYE BID [place] 5-325 Tablet (Acetaminophen/Hydrocodone Bitart) 1 Each Tablet 1 Tab PO Q4- 6HRS Lovastatin 20 Mg Tablet 20 Mg PO HS Ferrous Sulfate 325 Mg Tablet 325 Mg PO QODAY Doxazosin Mesylate 4 Mg Tablet 1 Tab PO DAILY Lisinopril 20 Mg Tablet 20 Mg PO DAILY Amlodipine Besylate 10 Mg Tablet 10 Mg PO DAILY Vitals/I & O Vital Sign - Last 24 Hours 06/22/20 06/22/20 06/22/20 06/22/20 13:19 13:19 15:00 19:40 Temp 97.9 98.1 97.9 98.1 Pulse 85 85 76 65 Resp 18 B/P (MAP) 128/62 (84) 153/76 (101) Pulse Ox 98 98 O2 Delivery Room Air Room Air 06/22/20 06/22/20 06/23/20 06/23/20 20:00 23:39 03:40 07:00 Temp 98.3 98.0 98.7 98.3 98.0 98.7 Pulse 63 51 64 Resp 18 18 18 B/P (MAP) 145/49 (81) 142/67 (92) 122/77 (92) Pulse Ox 97 96 98 O2 Delivery Room Air Room Air Room Air Room Air 06/23/20 06/23/20 06/23/20 09:45 09:46 09:46 Pulse 85 85 85 Intake and Output 06/22/20 06/22/20 06/23/20 15:00 23:00 07:00 Intake Total 400 ml 700 ml 60 ml Output Total 400 ml 400 ml 200 ml Balance 0 ml 300 ml -140 ml Justicifation of Admission Dx: Justifications for Admission: Justification of Admission Dx: Yes HILLARY FRANCIS MD Jun 23, 2020 11:18
[2020-06-23 11:22] VITALS: BP 119/55
[2020-06-23] MEDS: MAGNESIUM OXIDE 400 MG TABLET PO SCH (11:44)
[2020-06-23 14:52] VITALS: BP 127/48
[2020-06-23] MEDS: POTASSIUM CHLORIDE 20 MEQ TABLET.ER. PO SCH (17:29)
[2020-06-23 19:50] VITALS: BP 145/95
[2020-06-23] MEDS: oxyCODONE/APAP 5/325 1 TAB TABLET PO PRN (20:25)
--- NOTE | 2020-06-23 20:25 | NUR ---
Pt complaining of numbness in chelsy hands and a persistent headache behind his left eye for two weeks. Pt also experiencing 7/10 R hip pain, treated per JAN. will continue to monitor
[2020-06-23 23:00] VITALS: BP 125/62
[2020-06-24 02:49] VITALS: BP 108/58
[2020-06-24 05:39] LABS: CALCIUM 8.9 mg/dL (8.5-10.1); CREATININE 0.7 mg/dL (0.7-1.3); GFR 131.3; POTASSIUM 3.6 mmol/L (3.5-5.1)
[2020-06-24 07:00] VITALS: BP 136/51
[2020-06-24] MEDS: DOXAZOSIN MESYLATE 4 MG TABLET. PO SCH (08:56)
[2020-06-24] MEDS: FERROUS SULFATE 325 MG TABLET. PO SCH (08:57)
[2020-06-24] MEDS: MAGNESIUM OXIDE 400 MG TABLET PO SCH (08:57)
[2020-06-24] MEDS: oxyCODONE/APAP 5/325 1 TAB TABLET PO PRN (08:57)
[2020-06-24] MEDS: amLODIPine BESYLATE 10 MG TABLET PO SCH (08:58)
[2020-06-24] MEDS: POTASSIUM CHLORIDE 20 MEQ TABLET.ER. PO SCH ×2 (08:58→17:26)
[2020-06-24] MEDS: LISINOPRIL 20 MG TABLET PO SCH (08:58)
[2020-06-24] MEDS: DOCUSATE SODIUM 100 MG CAPSULE. PO SCH (09:00)
--- NOTE | 2020-06-24 10:40 | PDOC ---
[employer] PROGRESS NOTE Date of Service DOS: DATE: 06/24/20 TIME: 10:38 Chief Complaint Chief Complaint unable to ambulate, leg pain, sciatica, hip bursitis, dementia Htn, chronic diastolic CHF BPH, hypokalemia History of Present Illness History of Present Illness plan skilled in AM Patient reports improvement in pain after hip injection yesterday. His ambulation is still limited and states he requires assistance. He would be agreeable to skilled rehab. Vitals/I&O Vitals/I&O: Vital Signs Date Time Temp Pulse Resp B/P (MAP) Pulse Ox O2 Delivery O2 Flow Rate FiO2 06/24/20 08:58 60 136/51 06/24/20 08:57 18 97 Room Air 06/24/20 07:00 98.2 98.2 I & O 06/23/20 06/23/20 06/24/20 14:59 22:59 06:59 Intake Total 840 ml 1170 ml 300 ml Output Total 300 ml 550 ml 355 ml Balance 540 ml 620 ml -55 ml Physical Exam General: Alert, Cooperative Heart: Regular rate Abdomen: Soft Extremities: Other (The skin over the right hip is intact. The gross alignment is normal. There is decreased internal and external rotation of the hip, and pain with range of motion. Light touch sensation seems intact distally. Capillary refill is normal. He cannot lift the right leg from the bed, due to the groin and hip pain. I believe this is hip osteoarthritis.) Skin: No rashes, No significant lesion Labs Labs: Laboratory Tests Test 06/24/20 04:30 Sodium Level 143 mmol/L (136-145) Potassium Level 3.6 mmol/L (3.5-5.1) Chloride Level 106 mmol/L (98-107) Carbon Dioxide Level 25 mmol/L (21-32) Anion Gap 12 (6-14) Blood Urea Nitrogen 3 mg/dL (8-26) Creatinine 0.7 mg/dL (0.7-1.3) Estimated GFR (Cockcroft-Gault) 131.3 Glucose Level 114 mg/dL (70-99) Calcium Level 8.9 mg/dL (8.5-10.1) Assessment and Plan Assessmemt and Plan Problems Medical Problems: (1) Hypokalemia Status: Acute (2) Unable to ambulate Status: Acute unable to ambulate, leg pain, sciatica, hip bursitis, dementia Htn, chronic diastolic CHF BPH, hypokalemia Plan DC Comment Review of Relevant I have reviewed the following items miranda (where applicable) has been applied. Medications: Current Medications Medications (Trade) Dose Ordered Sig/Arron Route PRN Reason Start Time Stop Time Status Last Admin Dose Admin Potassium Chloride (Klor-Con) 40 meq BIDWMEALS PO 06/23/20 17:00 06/24/20 08:58 Potassium Chloride (Klor-Con) 40 meq 1X ONCE PO 06/23/20 11:15 06/23/20 11:16 DC 06/23/20 11:44 Magnesium Oxide (Magnesium Oxide) 400 mg DAILY PO 06/23/20 11:30 06/24/20 08:57 Justicifation of Admission Dx: Justifications for Admission: Justification of Admission Dx: Yes SON ESTRELLA III DO Jun 24, 2020 10:40
[2020-06-24 10:45] VITALS: BP 123/57
--- NOTE | 2020-06-24 10:46 | SNU/HH DC ---
DISCHARGE ORDERS DISCHARGE INFORMATION: FINAL DIAGNOSIS Problems Medical Problems: (1) Hypokalemia Status: Acute (2) Unable to ambulate Status: Acute CONDITION ON DISCHARGE: Stable CODE STATUS: Code Status: Full PRISON: SNF STAY <30 DAYS: No HOSPICE: HOSPICE: No HOSPICE EVAL & TREAT: No LTAC: ADMIT TO LTAC: Yes POST DISCHARGE ORDERS: ACTIVITY ORDERS: Activity as tolerated DIET AFTER DISCHARGE: Cardiac TREATMENT/EQUIPMENT ORDERS: Physical Therapy For: Evalulation/Treatment Occupational Therapy For: Evaluation/Treatment DISCHARGE MEDICATIONS: Home Meds Reported Medications Latanoprost (LATANOPROST) 2.5 Ml Drops, 1 DROP EACHEYE QHS for supplement, #7.5 ML 3 Refills 06/19/20 Brimonidine Tartrate (BRIMONIDINE TARTRATE) 5 Ml Drops, 1 DROP EACHEYE BID for supplement, #10 ML 0 Refills 06/19/20 Hydrocodone/Apap 5-325 (NORCO 5-325 TABLET) 1 Each Tablet, 1 TAB PO Q4-6HRS for pain, #40 TAB 06/19/20 Lovastatin (LOVASTATIN) 20 Mg Tablet, 20 MG PO HS for high cholesterol, TAB 06/19/20 Ferrous Sulfate (FERROUS SULFATE) 325 Mg Tablet, 325 MG PO QODAY for supplement, TAB 06/19/20 Doxazosin Mesylate (DOXAZOSIN MESYLATE) 4 Mg Tablet, 1 TAB PO DAILY for supplement, #30 TAB 5 Refills 06/19/20 Lisinopril (LISINOPRIL) 20 Mg Tablet, 20 MG PO DAILY for FOR HYPERTENSION, #30 TAB 0 Refills 06/19/20 Amlodipine Besylate (AMLODIPINE BESYLATE) 10 Mg Tablet, 10 MG PO DAILY for htn, TAB 06/19/20 SON ESTRELLA K III DO Jun 24, 2020 10:46
--- NOTE | 2020-06-24 11:18 | NUR ---
SS following up with discharge planning. SS reviewed pt chart and discussed with pt RN. Pt is currently on room air. COVID19 negative. SS phoned and faxed updates clinicals to [facility], ; fax [phone]. Pt accepted pending insurance authorization. [employer] requesting updated PT/OT notes within past 24 hours. Pt's RN notified. SS will continue to follow for discharge planning.
--- NOTE | 2020-06-24 14:04 | NUR ---
Ss following up with discharge planning. Pt declining PT/OT today. Pt's family contacted by pt RN. Pt daughter met with pt and discussed. Pt now agreeable to work with PT/OT. Per pt's daughter, pt denied for Medicaid due to assets. Pt's daughter reported they have no money to pay privately for facility. Pt's daughter understanding that if pt continues to decline PT/OT pt will need to discharge to home. SS will continue to follow for discharge planning.
[2020-06-24 14:52] VITALS: BP 117/60
--- NOTE | 2020-06-24 16:11 | NUR ---
SS following up with discharge planning. Pt participated in PT. SS faxed PT note to [facility]. SS will continue to follow for discharge planning.
[2020-06-24 19:00] VITALS: BP 143/58
[2020-06-24 23:00] VITALS: BP 107/62
[2020-06-25 04:19] VITALS: BP 139/63
[2020-06-25 08:00] VITALS: BP 141/61
[2020-06-25] MEDS: DOCUSATE SODIUM 100 MG CAPSULE. PO SCH (08:49)
[2020-06-25] MEDS: MAGNESIUM OXIDE 400 MG TABLET PO SCH (08:49)
[2020-06-25] MEDS: amLODIPine BESYLATE 10 MG TABLET PO SCH (08:49)
[2020-06-25] MEDS: POTASSIUM CHLORIDE 20 MEQ TABLET.ER. PO SCH ×2 (08:50→17:51)
[2020-06-25] MEDS: LISINOPRIL 20 MG TABLET PO SCH (08:50)
[2020-06-25] MEDS: FERROUS SULFATE 325 MG TABLET. PO SCH (08:51)
[2020-06-25] MEDS: DOXAZOSIN MESYLATE 4 MG TABLET. PO SCH (08:51)
[2020-06-25 11:00] VITALS: BP 140/54
--- NOTE | 2020-06-25 11:16 | PDOC ---
[employer] PROGRESS NOTE Date of Service DOS: DATE: 06/25/20 TIME: 11:09 Chief Complaint Chief Complaint unable to ambulate, leg pain, sciatica, hip bursitis, dementia Htn, chronic diastolic CHF BPH, hypokalemia History of Present Illness History of Present Illness 06/25/2020 Patient seen and examined. Seems well, NAD; sitting and eating in his room. 06/24/2020 plan skilled in AM Patient reports improvement in pain after hip injection yesterday. His ambulation is still limited and states he requires assistance. He would be agreeable to skilled rehab. Vitals/I&O Vitals/I&O: Vital Signs Date Time Temp Pulse Resp B/P (MAP) Pulse Ox O2 Delivery O2 Flow Rate FiO2 06/25/20 08:51 91 141/61 06/25/20 04:19 98.6 22 100 98.6 06/24/20 23:00 Room Air I & O 06/24/20 06/24/20 06/25/20 15:00 23:00 07:00 Intake Total 840 ml 600 ml 300 ml Output Total 430 ml 600 ml 550 ml Balance 410 ml 0 ml -250 ml Physical Exam General: Alert, Cooperative Heart: Regular rate Abdomen: Soft Extremities: Other (The skin over the right hip is intact. The gross alignment is normal. There is decreased internal and external rotation of the hip, and pain with range of motion. Light touch sensation seems intact distally. Capillary refill is normal. He cannot lift the right leg from the bed, due to the groin and hip pain. I believe this is hip osteoarthritis.) Skin: No rashes, No significant lesion Review of Systems Review of Systems: Patient denies weakness. Patient denies pain Assessment and Plan Assessmemt and Plan Assessment: Problems Medical Problems: (1) Hypokalemia Status: Acute (2) Unable to ambulate Status: Acute Plan: Discharge disposition pending Patient is doing OT Spoke with nurse, pending insurance authorization Comment Review of Relevant I have reviewed the following items miranda (where applicable) has been applied. Justicifation of Admission Dx: Justifications for Admission: Justification of Admission Dx: Yes SON ESTRELLA III DO Jun 25, 2020 11:16
--- NOTE | 2020-06-25 14:19 | NUR ---
SS following up with discharge planning. SS reviewed pt chart and discussed with pt RN. Pt is currently on room air. SS phoned and faxed updated PT/OT notes to [facility]. SS currently awaiting insurance authorization. Discharge orders faxed to [facility]. SS currently awaiting insurance determination and will proceed accordingly. Pt's RN notified.
[2020-06-25 15:00] VITALS: BP 125/69
[2020-06-25 18:54] VITALS: BP 130/52
[2020-06-25] MEDS: oxyCODONE/APAP 5/325 1 TAB TABLET PO PRN (20:02)
[2020-06-25 23:00] VITALS: BP 126/60
[2020-06-26] MEDS: oxyCODONE/APAP 5/325 1 TAB TABLET PO PRN ×3 (00:30→21:27)
[2020-06-26 03:00] VITALS: BP 130/54
[2020-06-26 07:00] VITALS: BP 126/55
[2020-06-26] MEDS: FERROUS SULFATE 325 MG TABLET. PO SCH (09:41)
[2020-06-26] MEDS: DOCUSATE SODIUM 100 MG CAPSULE. PO SCH (09:41)
[2020-06-26] MEDS: MAGNESIUM OXIDE 400 MG TABLET PO SCH (09:41)
[2020-06-26] MEDS: LISINOPRIL 20 MG TABLET PO SCH (09:42)
[2020-06-26] MEDS: POTASSIUM CHLORIDE 20 MEQ TABLET.ER. PO SCH ×2 (09:42→17:44)
[2020-06-26] MEDS: amLODIPine BESYLATE 10 MG TABLET PO SCH (09:43)
[2020-06-26] MEDS: DOXAZOSIN MESYLATE 4 MG TABLET. PO SCH (09:54)
[2020-06-26 11:00] VITALS: BP 120/57
--- NOTE | 2020-06-26 11:32 | NUR ---
SS following up with discharge planning. SS reviewed pt chart and discussed with pt RN. Pt currently on room air. Discharge orders on the chart for [facility]. Pt accepted and insurance authorization currently pending with [facility]. SS phoned and faxed clinical updates to [facility]. SS will continue to follow for discharge planning.
--- NOTE | 2020-06-26 14:17 | PDOC ---
PROGRESS NOTES Date of Service: DATE: 06/26/20 TIME: 14:16 Chief Complaint Chief Complaint unable to ambulate, leg pain, sciatica, hip bursitis, dementia Htn, chronic diastolic CHF BPH, hypokalemia History of Present Illness History of Present Illness 06/26 Patient seen and examined. Discussed discharge planning, home with home health. Hospital bed will be provided for patient upon discharge. 06/25/2020 Patient seen and examined. Seems well, NAD; sitting and eating in his room. 06/24/2020 plan skilled in AM Patient reports improvement in pain after hip injection yesterday. His ambulation is still limited and states he requires assistance. He would be ag reeable to skilled rehab. Vitals Vitals Vital Signs Date Time Temp Pulse Resp B/P (MAP) Pulse Ox O2 Delivery O2 Flow Rate FiO2 06/26/20 11:00 97.5 68 20 120/57 (78) 96 Room Air 97.5 Physical Exam General: Alert, Cooperative Heart: Regular rate Abdomen: Soft Extremities: Other (The skin over the right hip is intact. The gross alignment is normal. There is decreased internal and external rotation of the hip, and pain with range of motion. Light touch sensation seems intact distally. Capillary refill is normal. He cannot lift the right leg from the bed, due to the groin and hip pain. I believe this is hip osteoarthritis.) Skin: No rashes, No significant lesion Review of Systems Review of Systems Improving weakness. All other ROS negative. Assessment and Plan Assessmemt and Plan Problems Medical Problems: (1) Hypokalemia Status: Acute (2) Unable to ambulate Status: Acute Comment Review of Relevant I have reviewed the following items miranda (where applicable) has been applied. Medications Current Medications Potassium Chloride (Klor-Con) 40 meq 1X ONCE PO Last administered on 06/18/20at 21:51; Start 06/18/20 at 21:30; Stop 06/18/20 at 21:31; Status DC Iohexol (Omnipaque 300 Mg/ml) 75 ml 1X ONCE IV ; Start 06/18/20 at 21:45; Stop 06/18/20 at 21:46; Status DC Ondansetron HCl (Zofran) 4 mg 1X ONCE IVP Last administered on 06/18/20at 21:51; Start 06/18/20 at 21:30; Stop 06/18/20 at 21:31; Status DC Info (CONTRAST GIVEN -- Rx MONITORING) 1 each PRN DAILY PRN MC SEE COMMENTS; Start 06/18/20 at 21:30; Stop 06/20/20 at 15:53; Status DC Ondansetron HCl (Zofran) 4 mg PRN Q8HRS PRN IV NAUSEA/VOMITING; Start 06/18/20 at 22:30; Stop 06/19/20 at 22:29; Status DC Potassium Chloride (Klor-Con) 40 meq 1X ONCE PO Last administered on 06/19/20at 08:50; Start 06/19/20 at 08:30; Stop 06/19/20 at 08:31; Status DC Magnesium Sulfate 50 ml @ 25 mls/hr 1X ONCE IV Last administered on 06/19/20at 08:52; Start 06/19/20 at 08:30; Stop 06/19/20 at 10:29; Status DC Iohexol (Omnipaque 300 Mg/ml) 50 ml 1X ONCE INT ART Last administered on 06/20/20at 10:30; Start 06/20/20 at 08:15; Stop 06/20/20 at 08:21; Status DC Methylprednisolone Acetate (DEPO-Medrol 80MG VIAL) 80 mg 1X ONCE INJ Last administered on 06/20/20at 10:30; Start 06/20/20 at 08:15; Stop 06/20/20 at 08:21; Status DC Bupivacaine HCl (Sensorcaine Mpf 0.5%) 10 ml 1X ONCE IJ Last administered on 06/20/20at 10:30; Start 06/20/20 at 08:15; Stop 06/20/20 at 08:21; Status DC Info (CONTRAST GIVEN -- Rx MONITORING) 1 each PRN DAILY PRN MC SEE COMMENTS; Start 06/20/20 at 08:30; Stop 06/22/20 at 08:29; Status DC Oxycodone/ Acetaminophen (Percocet 5/325) 1 tab PRN Q4HRS PRN PO PAIN Last administered on 06/26/20at 09:50; Start 06/20/20 at 11:00 Docusate Sodium (Colace) 100 mg DAILY PO Last administered on 06/26/20at 09:41; Start 06/21/20 at 09:00 Potassium Chloride (Klor-Con) 40 meq 1X ONCE PO Last administered on 06/20/20 12:22; Start 06/20/20 at 11:00; Stop 06/20/20 at 11:10; Status DC Ferrous Sulfate (Feosol) 325 mg DAILYWBKFT PO Last administered on 06/26/20at 09:41; Start 06/21/20 at 08:00 Magnesium Sulfate 50 ml @ 25 mls/hr 1X ONCE IV Last administered on 06/20/20at 12:23; Start 06/20/20 at 11:30; Stop 06/20/20 at 13:29; Status DC Amlodipine Besylate (Norvasc) 10 mg DAILY PO Last administered on 06/26/20 09:43; Start 06/22/20 at 12:30 Doxazosin Mesylate (Cardura) 4 mg DAILY PO Last administered on 06/26/20 09:54; Start 06/22/20 at 12:30 Lisinopril (Prinivil) 20 mg DAILY PO Last administered on 06/26/20at 09:42; Start 06/22/20 at 12:30 Potassium Chloride (Klor-Con) 40 meq BIDWMEALS PO Last administered on 06/26/20 09:42; Start 06/23/20 at 17:00 Potassium Chloride (Klor-Con) 40 meq 1X ONCE PO Last administered on 06/23/20at 11:44; Start 06/23/20 at 11:15; Stop 06/23/20 at 11:16; Status DC Magnesium Oxide (Magnesium Oxide) 400 mg DAILY PO Last administered on 06/26/20at 09:41; Start 06/23/20 at 11:30 Active Scripts Active Reported Latanoprost 2.5 Ml Drops 1 Drop EACHEYE QHS Brimonidine Tartrate 5 Ml Drops 1 Drop EACHEYE BID [place] 5-325 Tablet (Acetaminophen/Hydrocodone Bitart) 1 Each Tablet 1 Tab PO Q4-6HRS Lovastatin 20 Mg Tablet 20 Mg PO HS Ferrous Sulfate 325 Mg Tablet 325 Mg PO QODAY Doxazosin Mesylate 4 Mg Tablet 1 Tab PO DAILY Lisinopril 20 Mg Tablet 20 Mg PO DAILY Amlodipine Besylate 10 Mg Tablet 10 Mg PO DAILY Vitals/I & O Vital Sign - Last 24 Hours 06/25/20 06/25/20 06/25/2006/25/20 15:00 18:54 20:00 20:02 Temp 98.2 98.4 98.2 98.4 Pulse 84 84 Resp 20 20 B/P (MAP) 125/69 (87) 130/52 (78) Pulse Ox 99 98 98 O2 Delivery Room Air Room Air Room Air Room Air 06/25/20 06/25/20 06/26/20 06/26/20 21:02 23:00 00:30 01:30 Temp 98.3 98.3 Pulse 65 Resp 22 B/P (MAP) 126/60 (82) Pulse Ox 98 98 98 98 O2 Delivery Room Air Room Air Room Air Room Air 06/26/20 06/26/20 06/26/20 06/26/20 03:00 07:00 08:00 09:42 Temp 98.3 98.6 98.3 98.6 Pulse 70 61 87 Resp 20 B/P (MAP) 130/54 (79) 126/55 (78) 126/72 Pulse Ox 97 96 O2 Delivery Room Air Room Air Room Air 06/26/20 06/26/20 06/26/20 06/26/20 09:43 09:50 09:54 10:50 Pulse 87 87 B/P (MAP) 126/72 126/72 O2 Delivery Room Air Room Air 06/26/20 11:00 Temp 97.5 97.5 Pulse 68 Resp 20 B/P (MAP) 120/57 (78) Pulse Ox 96 O2 Delivery Room Air Intake and Output 06/25/20 06/25/20 06/26/20 15:00 23:00 07:00 Intake Total 580 ml 400 ml 740 ml Output Total 580 ml 200 ml 300 ml Balance 0 ml 200 ml 440 ml Justicifation of Admission Dx: Justifications for Admission: Justification of Admission Dx: Yes JENNY MARTINEZ MD Jun 26, 2020 14:17
--- NOTE | 2020-06-26 14:29 | NUR ---
SS following up with discharge planning. [employer] denied authorization for inpatient rehabilitation. SS met with pt and family in room and discussed. Pt is in co-pay days for skilled rehabilitation and pt and family reported that they cannot afford co-pay. Pt and pt's family requesting to return to home with home healthcare. Pt was current on services with [facility], ; fax [phone]. Script received for hospital bed. SS phoned and faxed script and clinical to [facility], ; fax [phone]. Referral phoned and faxed to [facility]. SS will continue to follow for discharge planning.
--- NOTE | 2020-06-26 14:30 | DISCH ---
DISCHARGE INSTRUCTIONS Condition on Discharge Condition on Discharge: Stable Activity After Discharge Activity Instructions for Disc: Activity as tolerated Lifting Instructions after Dis: No heavy lifting Exercise Instruction after Dis: Progress as tolerated Driving Instructions after Dis: Do not drive Weight Bearing Status after Di: No restrictions Diet after Discharge Diet after Discharge: Cardiac Wound Incision Care Wound/Incision Care: No wound care needed Community/Resources/Services Services at Discharge: Home Health Care Services Treatment/Equipment after DC Adaptive Equipment Issued: Wheelchair JENNY MARTINEZ MD Jun 26, 2020 14:30
[2020-06-26 15:00] VITALS: BP 107/49
--- NOTE | 2020-06-26 15:04 | SNU/HH DC ---
DISCHARGE WITH HOME HEALTH DISCHARGE INFORMATION: Discharge Date: Jun 26, 2020 Final Diagnosis: Problems Medical Problems: (1) Hypokalemia Status: Acute (2) Unable to ambulate Status: Acute Condition on Discharge: Stable CODE STATUS: Code Status: Full HOME HEALTH: Face to Face: I certify this patient is under my care and that I, or a nurse practitioner or physician's corporate law assistant working with me, had a face to face encounter that meets the physician face to face encounter requirements with this patient on 06/26/2020. Medical Complications: HTN Prison For: Assess/Skilled Observatio, Medication Management, Pain Management RN For Eval/Treatment: Yes Physical Therapy For: Evalulation/Treatment Occupational Therapy For: Evaluation/Treatment Home Health Aide For: Self-care Pt Meets Homebound Status: Limited distance walking POST DISCHARGE ORDERS: Activity Instructions for Disc: Activity as tolerated Weight Bearing Status after Di: No restrictions DIET AFTER DISCHARGE: Cardiac Wound/Incision Care: No wound care needed TREATMENT/EQUIPMENT ORDERS: Adaptive Equipment Issued: Wheelchair CERTIFICATION STATEMENT: Certification Statement: Certification Statement: Based on the above finding, I certify that this patient is confined to the home and needs intermittent alf care, physical therapy and/or speech therapy, or continues to need occupational therapy.~ This patient is under my care, and I have initiated the establishment of the plan of care.~ This patient will be followed by myself or a community physician who will periodically review the plan of care. Home Meds Reported Medications Latanoprost (LATANOPROST) 2.5 Ml Drops, 1 DROP EACHEYE QHS for supplement, #7.5 ML 3 Refills 06/19/20 Brimonidine Tartrate (BRIMONIDINE TARTRATE) 5 Ml Drops, 1 DROP EACHEYE BID for supplement, #10 ML 0 Refills 06/19/20 Hydrocodone/Apap 5-325 (NORCO 5-325 TABLET) 1 Each Tablet, 1 TAB PO Q4-6HRS for pain, #40 TAB 06/19/20 Lovastatin (LOVASTATIN) 20 Mg Tablet, 20 MG PO HS for high cholesterol, TAB 06/19/20 Ferrous Sulfate (FERROUS SULFATE) 325 Mg Tablet, 325 MG PO QODAY for supplement, TAB 06/19/20 Doxazosin Mesylate (DOXAZOSIN MESYLATE) 4 Mg Tablet, 1 TAB PO DAILY for supplement, #30 TAB 5 Refills 06/19/20 Lisinopril (LISINOPRIL) 20 Mg Tablet, 20 MG PO DAILY for FOR HYPERTENSION, #30 TAB 0 Refills 06/19/20 Amlodipine Besylate (AMLODIPINE BESYLATE) 10 Mg Tablet, 10 MG PO DAILY for htn, TAB 06/19/20 LÁZARO DRAKE MD Jun 26, 2020 15:04
[2020-06-26 19:35] VITALS: BP 138/64
[2020-06-26 23:29] VITALS: BP 126/51
[2020-06-27 03:39] VITALS: BP 128/68
[2020-06-27 07:00] VITALS: BP 137/60
--- NOTE | 2020-06-27 08:21 | PDOC ---
PROGRESS NOTES Date of Service: DATE: 06/27/20 TIME: : Chief Complaint Chief Complaint unable to ambulate, leg pain, sciatica, hip bursitis, dementia Htn, chronic diastolic CHF BPH, hypokalemia History of Present Illness History of Present Illness 06/27 Patient states he is feeling "the same". Informed patient that discharge was held because we are still awaiting his hospital bed. 06/26 Patient seen and examined. Discussed discharge planning, home with home health. Hospital bed will be provided for patient upon discharge. 06/25/2020 Patient seen and examined. Seems well, NAD; sitting and eating in his room. 06/24/2020 plan skilled in AM Patient reports improvement in pain after hip injection yesterday. His ambulation is still limited and states he requires assistance. He would be agreeable to skilled rehab. Vitals Vitals Vital Signs Date Time Temp Pulse Resp B/P (MAP) Pulse Ox O2 Delivery O2 Flow Rate FiO2 06/27/20 07:00 98.0 69 16 137/60 (85) 99 Room Air 98.0 Physical Exam General: Alert, Cooperative Heart: Regular rate Abdomen: Soft Extremities: Other (The skin over the right hip is intact. The gross alignment is normal. There is decreased internal and external rotation of the hip, and pain with range of motion. Light touch sensation seems intact distally. Capillary refill is normal. He cannot lift the right leg from the bed, due to the groin and hip pain. 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 All other systems negative. Assessment and Plan Assessmemt and Plan Problems Medical Problems: (1) Hypokalemia Status: Acute (2) Unable to ambulate Status: Acute Comment Review of Relevant I have reviewed the following items miranda (where applicable) has been applied. Medications Current Medications Potassium Chloride (Klor-Con) 40 meq 1X ONCE PO Last administered on 06/18/20at 21:51; Start 06/18/20 at 21:30; Stop 06/18/20 at 21:31; Status DC Iohexol (Omnipaque 300 Mg/ml) 75 ml 1X ONCE IV ; Start 06/18/20 at 21:45; Stop 06/18/20 at 21:46; Status DC Ondansetron HCl (Zofran) 4 mg 1X ONCE IVP Last administered on 06/18/20at 21:51; Start 06/18/20 at 21:30; Stop 06/18/20 at 21:31; Status DC Info (CONTRAST GIVEN -- Rx MONITORING) 1 each PRN DAILY PRN MC SEE COMMENTS; Start 06/18/20 at 21:30; Stop 06/20/20 at 15:53; Status DC Ondansetron HCl (Zofran) 4 mg PRN Q8HRS PRN IV NAUSEA/VOMITING; Start 06/18/20 at 22:30; Stop 06/19/20 at 22:29; Status DC Potassium Chloride (Klor-Con) 40 meq 1X ONCE PO Last administered on 06/19/20at 08:50; Start 06/19/20 at 08:30; Stop 06/19/20 at 08:31; Status DC Magnesium Sulfate 50 ml @ 25 mls/hr 1X ONCE IV Last administered on 06/19/20at 08:52; Start 06/19/20 at 08:30; Stop 06/19/20 at 10:29; Status DC Iohexol (Omnipaque 300 Mg/ml) 50 ml 1X ONCE INT ART Last administered on 06/20/20at 10:30; Start 06/20/20 at 08:15; Stop 06/20/20 at 08:21; Status DC Methylprednisolone Acetate (DEPO-Medrol 80MG VIAL) 80 mg 1X ONCE INJ Last administered on 06/20/20at 10:30; Start 06/20/20 at 08:15; Stop 06/20/20 at 08:21; Status DC Bupivacaine HCl (Sensorcaine Mpf 0.5%) 10 ml 1X ONCE IJ Last administered on 06/20/20at 10:30; Start 06/20/20 at 08:15; Stop 06/20/20 at 08:21; Status DC Info (CONTRAST GIVEN -- Rx MONITORING) 1 each PRN DAILY PRN MC SEE COMMENTS; Start 06/20/20 at 08:30; Stop 06/22/20 at 08:29; Status DC Oxycodone/ Acetaminophen (Percocet 5/325) 1 tab PRN Q4HRS PRN PO PAIN Last administered on 06/26/20at 21:27; Start 06/20/20 at 11:00 Docusate Sodium (Colace) 100 mg DAILY PO Last administered on 06/26/20 09:41; Start 06/21/20 at 09:00 Potassium Chloride (Klor-Con) 40 meq 1X ONCE PO Last administered on 06/20/20 12:22; Start 06/20/20 at 11:00; Stop 06/20/20 at 11:10; Status DC Ferrous Sulfate (Feosol) 325 mg DAILYWBKFT PO Last administered on 06/26/20 09:41; Start 06/21/20 at 08:00 Magnesium Sulfate 50 ml @ 25 mls/hr 1X ONCE IV Last administered on 06/20/20 12:23; Start 06/20/20 at 11:30; Stop 06/20/20 at 13:29; Status DC Amlodipine Besylate (Norvasc) 10 mg DAILY PO Last administered on 06/26/20 09:43; Start 06/22/20 at 12:30 Doxazosin Mesylate (Cardura) 4 mg DAILY PO Last administered on 06/26/20 09:54; Start 06/22/20 at 12:30 Lisinopril (Prinivil) 20 mg DAILY PO Last administered on 06/26/20 09:42; Start 06/22/20 at 12:30 Potassium Chloride (Klor-Con) 40 meq BIDWMEALS PO Last administered on 06/26/20 17:44; Start 06/23/20 at 17:00 Potassium Chloride (Klor-Con) 40 meq 1X ONCE PO Last administered on 06/23/20at 11:44; Start 06/23/20 at 11:15; Stop 06/23/20 at 11:16; Status DC Magnesium Oxide (Magnesium Oxide) 400 mg DAILY PO Last administered on 06/26/20 09:41; Start 06/23/20 at 11:30 Active Scripts Active Reported Latanoprost 2.5 Ml Drops 1 Drop EACHEYE QHS Brimonidine Tartrate 5 Ml Drops 1 Drop EACHEYE BID Edison 5-325 Tablet (Acetaminophen/Hydrocodone Bitart) 1 Each Tablet 1 Tab PO Q4- 6HRS Lovastatin 20 Mg Tablet 20 Mg PO HS Ferrous Sulfate 325 Mg Tablet 325 Mg PO QODAY Doxazosin Mesylate 4 Mg Tablet 1 Tab PO DAILY Lisinopril 20 Mg Tablet 20 Mg PO DAILY Amlodipine Besylate 10 Mg Tablet 10 Mg PO DAILY Vitals/I & O Vital Sign - Last 24 Hours 06/26/20 06/26/20 06/26/20 06/26/20 09:42 09:43 09:50 09:54 Pulse 87 87 87 B/P (MAP) 126/72 126/72 126/72 O2 Delivery Room Air 06/26/20 06/26/20 06/26/20 06/26/20 10:50 11:00 15:00 19:35 Temp 97.5 98.1 98.1 97.5 98.1 98.1 Pulse 68 96 85 Resp 20 20 16 B/P (MAP) 120/57 (78) 107/49 (68) 138/64 (88) Pulse Ox 96 97 98 O2 Delivery Room Air Room Air Room Air Room Air 06/26/20 06/26/20 06/26/20 06/26/20 20:00 21:27 22:27 23:29 Temp 98.1 98.1 Pulse 71 Resp 16 B/P (MAP) 126/51 (76) Pulse Ox 98 98 98 O2 Delivery Room Air Room Air Room Air Room Air 06/27/20 06/27/20 03:39 07:00 Temp 98.7 98.0 98.7 98.0 Pulse 87 69 Resp 16 16 B/P (MAP) 128/68 (88) 137/60 (85) Pulse Ox 97 99 O2 Delivery Room Air Room Air Intake and Output 06/26/20 06/26/20 06/27/20 15:00 23:00 07:00 Intake Total 880 ml 400 ml 200 ml Output Total 525 ml 875 ml 450 ml Balance 355 ml -475 ml -250 ml Justicifation of Admission Dx: Justifications for Admission: Justification of Admission Dx: Yes JENNY MARTINEZ MD Jun 27, 2020 08:21
[2020-06-27] MEDS: POTASSIUM CHLORIDE 20 MEQ TABLET.ER. PO SCH (08:41)
[2020-06-27] MEDS: DOCUSATE SODIUM 100 MG CAPSULE. PO SCH (08:41)
[2020-06-27] MEDS: MAGNESIUM OXIDE 400 MG TABLET PO SCH (08:41)
[2020-06-27] MEDS: FERROUS SULFATE 325 MG TABLET. PO SCH (08:41)
[2020-06-27] MEDS: DOXAZOSIN MESYLATE 4 MG TABLET. PO SCH (08:42)
[2020-06-27] MEDS: amLODIPine BESYLATE 10 MG TABLET PO SCH (08:42)
[2020-06-27] MEDS: oxyCODONE/APAP 5/325 1 TAB TABLET PO PRN (08:42)
[2020-06-27] MEDS: LISINOPRIL 20 MG TABLET PO SCH (08:43)
--- NOTE | 2020-06-27 09:54 | NUR ---
SS following up with discharge planning. SS reviewed pt chart and discussed with pt RN. Pt set up with [facility], ; fax [phone]. Discharge orders were phoned and faxed to [facility] on 06/26/2020. Order for hospital bed received by JASPREET and JASPREET reaching out to pt's spouse to schedule delivery for the bed today. Pt's spouse reported that she will come to [facility] pt by noon today. Pt's RN notified.
[2020-06-27 10:37] VITALS: BP 133/65
--- NOTE | 2020-06-27 12:01 | DS ---
DATE OF DISCHARGE: 06/25/2020 ADMISSION DIAGNOSES: Weakness, hypokalemia, dementia. DISCHARGE DIAGNOSIS: Resolving weakness. HOSPITAL COURSE: The patient is a pleasant 80-year-old male who has dementia and basically presented with weakness and hypokalemia and just was not doing well at home. We admitted him. We did physical therapy and occupational therapy, replaced his electrolytes and over the next few days, he improved. He was discharged to [facility] [place]. DISPOSITION: [facility] [place]. ACTIVITY: As tolerated. DIET: Low sodium. MEDICATIONS: Please see the MRAD. TOTAL TIME: 34 minutes. WOODL Romero ESTRELLA DO DR: KUNAL/leeroy JOB#: [id number] / [id number]
--- NOTE | 2020-06-27 12:37 | NUR ---
Discharge Note: LALY DAVIS Discharge instructions and discharge home medications reviewed with Spouse and a copy given. All questions have been answered and understanding verbalized. The following instructions and handouts were given: discharge and follow up instructions. Home health teaching Discontinued lines and drains: peripheral IV discontinued, dressing french, dry and intact. Patient discharged to home with home health via wheelchair
== END 2020-06-27 12:30 | disposition home health service (06) | DRG 641 ==
LOC: ER 19:33 → 2 SOUTH 22:10
PROVIDERS: ADMIT Internal Medicine; ATTEND Internal Medicine
DX: E87.6 Hypokalemia (principal); I50.32 Chronic diastolic (congestive) heart failure; R53.1 Weakness; M16.11 Unilateral primary osteoarthritis, right hip; F03.90 Unspecified dementia, unspecified severity, without behavioral disturbance, psychotic disturbance, mood disturbance, and anxiety; I11.0 Hypertensive heart disease with heart failure; M16.12 Unilateral primary osteoarthritis, left hip; M54.30 Sciatica, unspecified side; N40.0 Benign prostatic hyperplasia without lower urinary tract symptoms; Z20.828 Contact with and (suspected) exposure to other viral communicable diseases; M70.72 Other bursitis of hip, left hip
CPT/HCPCS: 20610; 36415; 70450; 71045; 73502; 74176; 77002; 80048; 80053; 80307; 81001; 82274; 83690; 83735; 83880; 84484; 85007; 85025; 85027; 85610; 93005; 96374; 99285; J1040; J2405; J3475; J3490; Q9967; 97530-GO; 97535-GO; G0378; U0003-CS